=== PATIENT | female | born 1935 | race Caucasian/White ===

== ENCOUNTER 2022-05-17 04:41 | Inpatient (IN) | payer MEDICARE, BC, SELFPAY ==
[2022-05-17] VITALS (19 sets, daily range): BP systolic 111–155; BP diastolic 47–118; PULSE 50–98; RESP 12–22; TEMP 36.6–36.8; O2SAT 85–99; BMI 24.0; BMI 24.5
--- NOTE | 2022-05-17 04:47 | ECG_ITS ---
APPROVED REPORT Exam: Resting ECG HR:99 bpm ECG Measurements Heart Rate 99 AXES QRSd 83 QRS 107 QT 326 T 71 QTc 382 Conclusion ATRIAL FIBRILLATION SEPTAL MYOCARDIAL INFARCTION , OF INDETERMINATE AGE [40+ ms Q WAVE IN V1/V2] LATERAL MYOCARDIAL INFARCTION , OF INDETERMINATE AGE [40+ ms Q WAVE AND/OR ST/T ABNORMALITY IN I/aVL/V5/V6] ABNORMAL ECG UNCONFIRMED REPORT Electronically signed by : Yovani Vásquez MD 05/17/2022 13:21:27
--- NOTE | 2022-05-17 04:58 | XR_ITS ---
PROCEDURE INFORMATION: Exam: XR Chest Exam date and time: 05/17/2022 5:11 AM Age: 86 years old Clinical indication: Shortness of breath; Additional info: SOA TECHNIQUE: Imaging protocol: Radiologic exam of the chest. Views: 1 view. COMPARISON: No relevant prior studies available. FINDINGS: Lungs: No consolidation. Pleural spaces: No pleural effusion. No pneumothorax. Heart/Mediastinum: The heart is is severely enlarged. Bones/joints: There are degenerative changes of the spine and shoulders with evidence of chronic rotator cuff tears. IMPRESSION: 1. Cardiomegaly. 2. No evidence of active pulmonary disease. 3. A followup PA and lateral radiograph is recommended when the patient is clinically able.
[2022-05-17 05:10] LABS: Coronavirus 19, PCR Not Detected (NotDetected); Influenza A, PCR Not Detected (NotDetected); Influenza B, PCR Not Detected (NotDetected)
[2022-05-17 05:11] LABS: Basophils # 0.1 K/mm3 (0-0.2); Basophils % 0.7 % (0.1-2.0); Eosinophils # 0.2 K/mm3 (0.0-0.4); Eosinophils % 2.1 % (0.1-12.0); Hematocrit 42.6 % (37.0-47.0); Hemoglobin 13.3 g/dL (12.2-16.2); Lymphocytes # 1.9 K/mm3 (0.7-4.5); Lymphocytes % 22.2 % (10-50); Mean Corpuscular HGB Conc 31.3 g/dL (31.8-35.4); Mean Corpuscular Hemoglobin 31.1 pg (27.0-31.2); Mean Corpuscular Volume 99.5 fl (81-99); Mean Platelet Volume 7.6 fl (7.4-10.4); Monocytes # 0.6 K/mm3 (0.1-1.0); Monocytes % 6.7 % (1.7-9.3); Neutrophils % 68.3 % (37.0-80.0); Platelet Count 248 K/mm3 (142-424); Red Blood Count 4.28 M/mm3 (4.20-5.40); Red Cell Distribution Width 13.5 % (11.5-17.5); White Blood Count 8.8 K/mm3 (4.8-10.8)
[2022-05-17 05:16] LABS: Alanine Aminotransferase 29 U/L (12-78); Albumin Level 4.3 g/dl (3.5-5.0); Albumin/Globulin Ratio 1.4 (1.1-1.8); Alkaline Phosphatase 134 U/L (38-126); Anion Gap 12.9 mEq/L (5-15); Aspartate Amino Transferase 72 U/L (14-36); Bilirubin,Total 0.5 mg/dl (0.2-1.3); Blood Urea Nitrogen 18 mg/dl (7-17); Calcium 9.8 mg/dl (8.4-10.2); Carbon Dioxide 37 mmol/L (22.0-30.0); Chloride 96 mmol/L (98-107); Creatinine Clearance Estimated 42 mL/min (50-200); Estimated Glomerular Filt Rate 80 ml/min (>60); GFR (African American) 96 ML/MIN (>60); Globulin 3.1 g/dL (1.3-3.2); Glucose 111 mg/dl (74-100); Potassium 3.9 mmoL/L (3.5-5.1); Sodium 142 mmol/L (136-145); Total Protein,Serum 7.4 g/dl (6.3-8.2)
[2022-05-17 05:19] LABS: Lactic Acid 1.5 mmol/L (0.7-2.1)
--- NOTE | 2022-05-17 05:21 | HMH.EDSOB ---
Discharge Plan Disposition Chief Complaint: Shortness of Breath/Dyspnea Prescriptions Prescriptions: No Action furosemide 40 mg tablet 40 mg PO DAILYP PRN (Reason: fluid, swelling) Label Comments: TAKE 1 TABLET BY MOUTH ONCE DAILY NEEDED tramadol 50 mg tablet 50 mg PO DAILY pantoprazole 40 mg tablet,delayed release (DR/EC) 40 mg PO DAILY gabapentin 100 mg capsule 100 mg PO BID Label Comments: TAKE 1 CAPSULE BY MOUTH TWICE DAILY TO IMPROVE HAND SYMPTOMS. atenolol 50 mg tablet 50 mg PO DAILY Label Comments: TAKE 1 TABLET BY MOUTH ONCE DAILY oxycodone 5 mg tablet 5 mg PO DAILY Eliquis 5 mg tablet 5 mg PO BID Referrals Follow up/Referrals: Manuel Lundberg [Primary Care Provider] - See instructions Clinical Impressions Clinical Impression: Congestive heart failure, Atrial fibrillation Discharge ED Provider: Jonh Queen Resp/SOB HPI General Chief Complaint: Shortness of Breath/Dyspnea Stated Complaint: SOA Time Seen by Provider: 05/17/22 05:21 Mode of Arrival: Wheelchair Source of Information: Patient, Relative and Medical Record Limitations: No Limitations Description of Symptoms (Recalled from ER Triage Doc. by RN): pt c/o SOA and cough x 2 days that gotten progressive worse History of Present Illness progressive sob with cough over the last 2 days with o2 sat 85 on room air MD Complaint: shortness of breath and cough Onset (ago): day(s) Severity: moderate Known history of: congestive heart failure Associated symptoms: denies other symptoms Treatment prior to arrival: oxygen Related Data Home oxygen amount: other (uses bedtime ) Home Medications Medication Instructions Recorded Confirmed apixaban 5 mg tablet (Eliquis) 5 mg PO BID Blood thinner 05/17/22 05/17/22 atenolol 50 mg tablet 50 mg PO DAILY heart rate 05/17/22 05/17/22 furosemide 40 mg tablet 40 mg PO DAILYP PRN fluid, swelling 05/17/22 05/17/22 gabapentin 100 mg capsule 100 mg PO BID neuropathy 05/17/22 05/17/22 oxycodone 5 mg tablet 5 mg PO DAILY Pain 05/17/22 05/17/22 pantoprazole 40 mg tablet,delayed 40 mg PO DAILY GERD 05/17/22 05/17/22 release tramadol 50 mg tablet 50 mg PO DAILY Pain 05/17/22 05/17/22 Allergies Allergy/AdvReac Type Severity Reaction Status Date / Time No Known Allergies Allergy Verified 05/17/22 04:56 PFSH PFSH Social History Smoking Status: Never smoker alcohol intake: never current occupational status: retired Travel in the last 8 weeks: None ROS Obtained: Yes All systems reviewed & no additional complaints except as documented Constitutional Constitutional: Reports weakness Cardiovascular Cardiovascular: Reports as per HPI and Reports dyspnea Respiratory Respiratory: Reports dyspnea Neurologic Neurologic: Reports weakness Physical Exam General General appearance: alert Head Head exam: normocephalic Eye Eye exam: Present PERRL and EOMI ENT ENT exam: Present mucous membranes moist Neck Neck exam: Present trachea midline Respiratory Respiratory exam: Present wheezes Cardiovascular Cardiovascular exam: Present irregular rhythm, systolic murmur and +S4 Abdominal Exam Abdominal exam: Present soft Extremities Exam Extremities exam: Present edema Neurological Exam Neurological exam: Present alert and CN II-XII intact Skin Skin exam: Absent rash Medical Decision Making Medical Records Medical records reviewed: Yes I reviewed the patient's medical records. Luis Miguel Inquiry Pt receiving controlled substance: No Vital Signs: 05/17/22 04:42 05/17/22 05:05 Temperature 98.3 F Temperature Source Oral Pulse Rate 93 H Pulse Rate [Right] 80 Respiratory Rate 22 Blood Pressure 137/79 Blood Pressure [Right Arm] 155/76 H Blood Pressure Mean 106 Blood Pressure Mean [Right Arm] 102 02 Sat by Pulse Oximetry 85 L 95 Oxygen Delivery Method Room Air Oxygen Flow Rate (LPM) 2 Lab Data Lab results reviewed:
[2022-05-17 05:25] LABS: NT Pro Brain Natriuretic Pep. 2780 pg/mL (0-450)
[2022-05-17 05:34] LABS: Troponin I < 0.01 ng/ml (0.00-0.034)
[2022-05-17 05:36] LABS: Free T4 (Free Thyroxine) 1.48 ng/dl (0.78-2.19)
--- NOTE | 2022-05-17 05:38 | PC.NURSE ---
ER speaking with Hospitalist at this time
[2022-05-17 05:46] LABS: Thyroid Stimulating Hormone 4.34 uIU/mL (0.465-4.68)
--- NOTE | 2022-05-17 06:00 | EXP.HP ---
History of Present Illness *Admission Date: 05/17/22 *Reason for visit:: Shortness of air, cough *History of present illness: Ms. Mendoza is a 86-year-old female with a past medical history that is positive for Atrial Fibrillation on chronic anticoagulation, CHF, unknown type and EF, and chronic home oxygen use at nights. She presents to [facility] through the ER due to shortness of air that has progressively worsened associated with a non-productive cough x 2-3 days duration. The patient was seen on admission in the ER, and son were at bedside. The patient reports shortness of air associated with cough, orthopnea and paroxysmal nocturnal dyspnea over the last 2-3 days. She reports that her symptoms worsened and did not improve at home so she came into the ER for evaluation. In the ER, the patient had a Cxray that showed findings of pulmonary crowding, BNP was elevated at 2780. Troponin was <0.01. CBC, CMP were unremarkable. Oxygen saturation was 95% on 2L nasal cannula. On exam the patient has some fine crackles in the lung lobes and 1 plus BLE edema. The patient will be admitted with initial impression: CHF exacerbation. Echo will be ordered, Lasix will be given. Strict intake/output and weight will be monitored. Sputum will be ordered, D-dimer will be ordered. The plan of care was discussed in detail with the patient and her family prior to admission. Patient and family verbalized understanding and agreement with the plan of care. [facility] Medical History (Updated 05/17/22 @ 10:43 by Tavia Caraballo APRN) Abnormal electrocardiogram [ECG] [EKG] Afib Atypical angina Bilateral carotid bruits CHF (congestive heart failure) Current use of jail anticoagulation Elevated troponin Lower extremity edema Pulmonary hypertension Shortness of Breath Surgical History H/O: hysterectomy History of cholecystectomy Hx of hernia repair Social History (Updated 05/17/22 @ 06:45 by April Barnes RN) Smoking Status: Never smoker alcohol intake: never current occupational status: retired Travel in the last 8 weeks: None Review of Systems Review of Systems Review of systems:: pertinent systems reviewed and negative unless documented below Constitutional Constitutional: Reports weakness Eyes Eyes: Reports system reviewed and no additional complaints, except as documented ENT Ears, Nose, Mouth, and Throat: Reports system reviewed and no additional complaints, except as documented *Cardiovascular Cardiovascular: Reports dyspnea, Reports dyspnea on exertion, Reports edema, Reports irregular heart rhythm, Reports leg edema, Reports orthopnea and Reports paroxysmal nocturnal dyspnea *Respiratory Respiratory: Reports dyspnea and Reports dyspnea on exertion *Gastrointestinal Gastrointestinal: Reports system reviewed and no additional complaints, except as documented *Genitourinary Genitourinary: Reports system reviewed and no additional complaints, except as documented *Musculoskeletal Musculoskeletal: Reports system reviewed and no additional complaints, except as documented Integumentary/Breasts Skin/Breast: Reports system reviewed and no additional complaints, except as documented *Neurologic Neurologic: Reports system reviewed and no additional complaints, except as documented and Reports weakness Psychiatric Psychiatric: Reports system reviewed and no additional complaints, except as documented Endocrine Endocrine: Reports system reviewed and no additional complaints, except as documented Hematologic/Lymphatic Hematologic/Lymphatic: Reports system reviewed and no additional complaints, except as documented Allergic/Immunologic Allergic/Immunologic: Reports system reviewed and no additional complaints, except as documented Meds Home Medications and Allergies Home Medications Medication Instructions Recorded Confirmed Type apixaban 5 m
--- NOTE | 2022-05-17 06:02 | CA_ITS ---
APPROVED REPORT EXAM: Comprehensive 2D, Doppler, and color-flow Echocardiogram Software Verification Engineer: Radha Villar RCS, RVS Ht: 5 ft 4 in Wt: 140lbs BSA: 1.68 BP: 137/79 mmHg Indications: SOA,CHRONIC AF,CHF, 2D Dimensions LVOT 1.58 cm (M/F) 1.5-2.5 M-Mode Dimensions RVDd 2.40 cm (0.9-2.6) LA Diam 4.66 cm (1.9-4.0) LVDd 5.15 cm (3.5-5.7) Ao Diam 3.12 cm (2.0-3.7) LVDs 3.75 cm (3.5-5.7) IVSd 0.82 cm (0.6-1.1) PWd 0.89 cm (0.6-1.1) EF (Teich) 52.60% FS 27.20% EDV (Teich) 126.60 mL ESV (Teich) 60.00 mL LV Diastology E Decel Time 120.00 (160-240 msec) E/A Ratio 2.0 MED E' 10.50 (< 7 cm/sec) E'/MED E' Ratio 9.16 (>14) LAT E' 14.60 (<10 cm/sec) E/LAT E' Ratio 6.59 (>14) Aortic Valve AI PHT 415.00 ms Mitral Valve MV E Max Frank. 96.00 (40-130 cm/s) MV A Velocity 49.00 (40-130 cm/s) E/A Ratio 1.97 MV Decel. Time 120.00 (160-240 ms) MV PHT 35.00 ms Tricuspid Valve TR P. Velocity 364.00 cm/s RAP Estimate 10.00 mmHg RVSP 63.00 mmHg Left Ventricle Left atrium is markedly enlarged, left ventricle is normal size, mild concentric left ventricular hypertrophy, estimated ejection fraction 55% with no regional wall motion abnormality, diastolic parameters are inconclusive. Right Ventricle Right atrium and right ventricle are moderately enlarged with normal contractility. Aortic Valve Aortic valve is thickened and calcified without aortic stenosis, there is mild aortic insufficiency. Mitral Valve Mitral valve leaflets are minimally thickened, there is moderate mitral regurgitation. Tricuspid Valve Tricuspid valve is minimally thickened, there is moderate tricuspid regurgitation, calculated right ventricular systolic pressure 63 mmHg. Pulmonic Valve Pulmonic valve is poorly visualized. Great Vessels Aortic root is normal size. Inferior vena cava is poorly visualized. Pericardium No significant pericardial effusion noted. Conclusion 1. Biatrial enlargement, normal left ventricular size, mild concentric left ventricular hypertrophy, estimated ejection fraction 55% with no regional wall motion abnormality, diastolic parameters are inconclusive. 2. Moderately enlarged right ventricle with normal contractility. 3. Mild aortic, moderate mitral and moderate tricuspid regurgitation, calculated right ventricular systolic pressure 63 mmHg. 4. No significant pericardial effusion. 5. Inferior vena cava is poorly visualized. Electronically signed by : Luis Hennessy MD 05/17/2022 07:33:30
[2022-05-17 06:16] LABS: Appearance,Urine CLEAR (Clear); Bilirubin,Urine Negative (Negative); Blood, Urine TRACE-I (Negative); Color,Urine YELLOW (Yellow); Glucose,Urine (UA) Negative (Negative); Ketones,Urine Negative (Negative); Leukocyte Esterase,Urine Negative (Negative); Microscopic, Urine URINE MICROSCOPIC (MICROSCOPIC); Nitrate,Urine POSITIVE (Negative); PH,Urine 7.5 (5.0-8.5); Protein,Urine Negative (Negative)
--- NOTE | 2022-05-17 06:27 | PC.NURSE ---
PT ARRIVED TO FLOOR VIA WHEELCHAIR AT THIS TIME
[2022-05-17 06:45] LABS: Bacteria,Urine 3+ /lpf; RBC,Urine Occasional #/hpf (0-3); Squamous Epithelial Cell,Urine Occasional #/hpf (0-5); WBC,Urine Occasional #/hpf (0-3)
[2022-05-17 08:47] LABS: Troponin I 0.04 ng/ml (0.00-0.034)
--- NOTE | 2022-05-17 09:36 | HMH.PTEV ---
Physical Therapy Evaluation Rehab PT IP Evaluation Start: 05/17/22 08:45 Freq: ONCE Status: Active Protocol: Document 05/17/22 09:09 NINABEKAH (Rec: 05/17/22 09:36 NINABEKAH [id number]) Subjective/History History History Ms. Mendoza is a 86-year-old female with a past medical history that is positive for Atrial Fibrillation on chronic anticoagulation, CHF, unknown type and EF, and chronic home oxygen use at nights. She presents to [facility] through the ER due to shortness of air that has progressively worsened associated with a non- productive cough x 2-3 days duration. Subjective Subjective no complaints from PT Rehab PT IP Eval Objective Appearance Patient Behavior Appropriate,Cooperative Patient Orientation Place,Name,Birthday,Year, Situation Difficulty following instructions none Speech Pattern Clear,Appropriate Ambulation Patient Able to Ambulate Yes Ambulation Observation IP General Gait Pattern Observation Shuffling Step Ambulation Distance (feet) 35 Ambulation Assistive Device Rolling Walker Ambulation Ability Supervision/Stand by Balance Ability to Arise Able, uses arms to help Sitting Balance Steady, safe Standing Balance Narrow stance w/o support Dynamic Sitting Balance Ability Good Dynamic Standing Balance Ability Fair Transfers Chair Transfer Ability Supervision/Stand by Sit to Stand Chair Transfer Ability Supervision/Stand by,Contact Guard/Hand Hold Rehab PT IP prob,goals,plan Problems Date of Evaluation: 05/17/22 PT IP Problems Gait,Self care,Safety Rehab Potential Rehab Potential Good Equipment Needs Assistive Devices Rolling / Wheeled Walker Plan PT Intervention Plan Transfers,Gait,Balance,Self care,Safety,Therapeutic Exercise PT Plan Frequency BID Duration LOS Discharge Goals Bed Transfer Ability Supervision/Stand by Sit to Stand Chair Transfer Ability Supervision/Stand by Ambulation Assistive Device Rolling Walker Ambulation Distance (feet) 35 Discharge Plan PT Discharge Plan Pt will benefit from skilled therapy while in H
--- NOTE | 2022-05-17 10:10 | IR_ITS ---
APPROVED REPORT Patient Location: Inpatient Senior Java Data Architect: ORION Cornejo RT (R) PROCEDURES Catheter placement in the right subclavian artery Right subclavian artery retrograde angiogram Bare-metal stent deployment to the right subclavian artery Right heart catheterization Left heart catheterization Left ventriculogram Selective coronary angiogram Drug-eluting stent deployment to the ostial proximal LAD and mid LAD in a noncontiguous manner INDICATION Elevated troponin/acute coronary syndrome, Unstable angina, Coronary artery disease, Right subclavian stenosis, Pulmonary hypertension Informed consent was obtained prior to the procedure. COMPLICATIONS NONE Estimated Blood Loss: LESS THAN 10 ML TECHNIQUE One percent lidocaine was used to anesthetize the right anterior aspect of the right wrist. The right radial artery was accessed via the Seldinger technique and a 6 Spanish hydrophilic sheath was placed in the right radial artery. Following this one percent lidocaine was used to anesthetize the right anterior aspect of the right neck. The right internal jugular vein was accessed via the Seldinger technique and a 7 Spanish sheath was placed in the right internal jugular vein. Following this an arterial cocktail was administered using 5000U heparin, 2.5 mg verapamil, 1mg Lidocaine and 800mcg nitroglycerin into the right radial sheath. A papa catheter was advanced into the proximal subclavian artery however retrograde angiography demonstrated extensive calcification. A Choice PT extra-support wire was used to traverse the stenosis and therapeutic heparin was administered giving a therapeutic ACT. A 5 mm x 12 mm noncompliant coronary balloon was deployed at 20 sergio to reduce the stenosis. A 7 mm x 15 mm Herculink stent was deployed at 16 sergio reducing the stenosis. An additional 7 mm x 15 mm Herculink stent was advanced proximal to the first stent yet still overlapping it and deployed at 20 sergio. The balloon was brought back between the 2 stents and deployed at 20 to post dilate. Following this excellent angiograph results were obtained with normalization of blood pressure from the aorta into the right arm. This allowed advancement of the Poppa catheter were left heart catheterization and left ventriculogram and selective coronary angiography was performed. Following this the guide catheter was placed into the left main artery followed by a Choice PT extra-support wire. A 2.75 x 22 mm resolute Birchleaf stent was placed in the ostial proximal LAD and deployed at 20 sergio reducing the stenosis to 0%. A 2.5 x 12 mm resolute Birchleaf stent was then placed in the mid LAD and deployed at 12 sergio. An additional 2.25 x 12 mm resolute Birchleaf stent was placed distal to this yet still overlapping it and deployed at 20 sergio with the balloon being pulled back and deployed at 24 sergio to post dilate the 2 5 stent and mesh the 2 stents together. MUMTAZ II flow was present at the beginning of the procedure in the LAD with MUMTAZ-3 flow at the end of the procedure. Following the coronary angiogram right heart catheterization was performed under fluoroscopic and hemodynamic guidance. At the end the procedure the apparatus was removed the sheath was removed and hemostasis was achieved using TR banding patient was transferred to the postop already in stable condition ANGIOGRAPHIC RESULTS The left main artery Normal The left anterior descending artery Has an ostial 70% followed by proximal 70% stenosis with a mid vessel greater than 90% stenosis accompanied by MUMTAZ II flow The circumflex artery Large dominant with mild 10% atheromatous plaque The right coronary artery Nondominant normal The PITTMAN ventriculogram reveals Normal 65% The lef
--- NOTE | 2022-05-17 10:26 | EXP.CARD.CON ---
History of Present Illness History of Present Illness Consult date: 05/17/22 Requesting physician: Rosalino Olmedo Consult reason: shortness of breath Chief complaint: SOA History of present illness: This is an 86-year-old white female who presented to the emergency department complaints of shortness of breath and a cough. The patient reports that she has been short of breath for the last several weeks and it progressively worsened. She states the last 2 to 3 days her shortness of breath got pretty severe. She states that it was associated with a productive cough. She states that at first the flame was clear and then turned green. The shortness of breath was associated with a cough, orthopnea and PND. Her symptoms continue to worsen with no improvement at home so she came into the emergency department. She denies any chest pain or pressure. Her shortness of breath was also associated with lower extremity edema. She reports wearing compression hose at first but the edema got a little better so she stopped wearing them. The patient was admitted to the hospital for an acute exacerbation of CHF due to an elevated BNP at 2780 and her symptoms. She denies any fever, chills, nausea, vomiting or diarrhea. The patient does report that both her mother and father had coronary artery disease/[place]. 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 Elevated troponin Lower extremity edema Pulmonary hypertension Shortness of Breath Surgical History H/O: hysterectomy History of cholecystectomy Hx of hernia repair Social History (Updated 05/17/22 @ 06:45 by April Barnes RN) Smoking Status: Never smoker alcohol intake: never current occupational status: retired Travel in the last 8 weeks: None Review of Systems Review of Systems Review of systems:: pertinent systems reviewed and negative unless documented below Constitutional Constitutional: Reports system reviewed and no additional complaints, except as documented and Reports weakness Eyes Eyes: Reports system reviewed and no additional complaints, except as documented ENT Ears, Nose, Mouth, and Throat: Reports system reviewed and no additional complaints, except as documented *Cardiovascular Cardiovascular: Reports system reviewed and no additional complaints, except as documented, Denies chest pain, Reports dyspnea, Reports dyspnea on exertion, Reports leg edema and Reports orthopnea *Respiratory Respiratory: Reports system reviewed and no additional complaints, except as documented, Reports change in phlegm color, Reports chest congestion, Reports cough, Reports dyspnea, Reports dyspnea on exertion and Reports excessive phlegm production *Gastrointestinal Gastrointestinal: Reports system reviewed and no additional complaints, except as documented *Genitourinary Genitourinary: Reports system reviewed and no additional complaints, except as documented *Musculoskeletal Musculoskeletal: Reports system reviewed and no additional complaints, except as documented Integumentary/Breasts Skin/Breast: Reports system reviewed and no additional complaints, except as documented *Neurologic Neurologic: Reports system reviewed and no additional complaints, except as documented and Reports weakness Psychiatric Psychiatric: Reports system reviewed and no additional complaints, except as documented Endocrine Endocrine: Reports system reviewed and no additional complaints, except as documented Hematologic/Lymphatic Hematologic/Lymphatic: Reports system reviewed and no additional complaints, except as documented Allergic/Immunologic Allergic/Immunologic: Reports system reviewed and no additional complaints, except as documented Exam Data for Last 24 hours Vital si
--- NOTE | 2022-05-17 10:28 | CA_ITS ---
FINAL REPORT TECHNIQUE: Color Doppler, duplex Doppler and ballard scale sonography of the bilateral neck arterial vasculature was performed. Velocities were measured in the carotid arteries. Stenosis evaluation based on the validated velocity criteria. CLINICAL HISTORY: bilateral carotid bruits, Pre cardiac cath, chronic afib FINDINGS: The peak systolic velocity of the right common carotid artery is 95 cm/s. The peak systolic velocity of the right internal carotid artery is 113 cm/s and end diastolic velocity 14 cm/s. The ICA/CCA ratio is 1.2. A small amount of plaque is present. The right external carotid artery is patent. The right vertebral artery is patent with antegrade flow. The peak systolic velocity of the left common carotid artery is 79 cm/s. The peak systolic velocity of the left internal carotid artery is 195 cm/s and end diastolic velocity 31 cm/s. The ICA/CCA ratio is 2.5. A moderate amount of plaque is present. The left external carotid artery is patent.The left vertebral artery is patent with antegrade flow. IMPRESSION: Less than 50% stenosis on the right. 50-69% stenosis on the left. Recommend correlation with CTA or catheter angiogram. Reviewed, Interpreted and Dictated by Jonathan Elam III, MD Transcribed by Dayna Bunch Authenticated and [facility]
--- NOTE | 2022-05-17 10:39 | HMH.OTEV ---
OT Inpatient Evaluation Rehab OT IP Evaluation Start: 05/17/22 08:45 Freq: ONCE Status: Complete Protocol: Document 05/17/22 10:30 [facility] (Rec: 05/17/22 10:39 [facility] [id number]) Rehab OT IP Assessment Subjective History Pt was oriented x 3 on arrival . Pt agreeable to engage in therapy evaluation. Pt was admitted via Ed on 05/17/22 due to SOA and cough. Prior to being in the hospital, pt lived at home with her . Pt claims she was independent with all ADLs. Pt reports she does complete most IADLs independently such as laundry and cleaning. However, her does the grocery shopping and most of the cooking. She does use a rollator at all times during functional transfers. She also normally uses o2 at night . Pt has a past medical history of: Afib CHF (congestive heart failure) Subjective I am so cold. Pt resting in chair. Pt completed lower body dressing by donning socks independently . Pt stood from chair with min assist. Pt transferred from chair to bsc with cga and rolling walker. Pt sat down on bsc with cga. Pt stood from bsc with min assist after urination. Pt was dependent to complete toileting hygiene after urination and to don a clean brief. Pt transferred back to chair with cga and rollator. Pt sat down in chair with cga. Objective Patient Orientation Person,Place,Birthday Upper Extremity Gross ROM Min Limitation <25% Shoulder ROM Limitations Muscle Weakness Elbow ROM Limitations Muscle Weakness Wrist Limitations of Range of Motion Muscle Weakness Transfer Training Sit/Stand Transfer Assist Level Contact Guard/Hand Hold Chair Transfer Ability
[2022-05-17 10:55] LABS: Bilirubin,Unconjugated 0.3 mg/dL (0.0-1.1)
[2022-05-17 10:56] LABS: Alanine Aminotransferase 30 U/L (12-78); Alkaline Phosphatase 107 U/L (38-126); Aspartate Amino Transferase 75 U/L (14-36); Bilirubin,Direct 0.2 mg/dl (0.0-0.4); Bilirubin,Indirect 0.3 mg/dL (0.0-0.9); Bilirubin,Total 0.5 mg/dl (0.2-1.3); Chol/HDL Ratio 2.7 (1-3.5); Cholesterol 160 mg/dl (140-200); HDL Cholesterol 60 mg/dl (40-60); Triglycerides 45 mg/dl (30-150); VLDL Cholesterol 9 mg/dL (0-40)
[2022-05-17 11:07] LABS: Direct LDL Cholesterol 73.29 mg/dL (100-129)
[2022-05-17 11:36] LABS: Troponin I 0.06 ng/ml (0.00-0.034)
--- NOTE | 2022-05-17 13:05 | PC.NURSE ---
Report received from Kayla Bernard RN
[2022-05-17 13:16] LABS: CATHL Activated Clotting Time > 400 SEC (74-125)
[2022-05-17 13:17] LABS: CATHL Arterial O2 SAT 77.7 % (90-100); CATHL Venous O2 SAT 79.2 % (75-80)
--- NOTE | 2022-05-17 13:19 | CT_ITS ---
FINAL REPORT CLINICAL HISTORY: restrictive pericarditis, PER DR TAPIA MEASURE PERICARDIAL THICKNESS FINDINGS: Axial images were obtained from the lung apex to the mid abdomen by computed tomography. Coronal reformatted images were obtained. This study was performed with techniques to keep radiation doses as low as reasonably achievable, (ALARA). Individualized dose reduction techniques using automated exposure control or adjustment of mA and/or kV according to the patient's size were employed. There is no axillary adenopathy. There is no hilar or mediastinal adenopathy. Cardiomegaly is noted. Pericardial thickness measures approximately 2 mm. There are several small pericardial calcifications. There is a small right pleural effusion. There is left posterior pleural thickening with pleural calcification. There is right pleural calcification. Limited images of the upper abdomen pneumobilia likely due to postoperative change. There is mild anasarca. There is probable rounded atelectasis in the left lower lobe. There is fusion of multiple thoracic vertebrae consistent with ankylosing spondylitis. There is a partially imaged presumed IVC filter. IMPRESSION: Pericardial thickness of 2 mm with several small pericardial calcifications. Probable rounded atelectasis in the left lower lobe. Reviewed, Interpreted and Dictated by Jonathan Elam III, MD Transcribed by Anam Cevallos Authenticated and [facility]
--- NOTE | 2022-05-17 16:51 | EXP.DC.SUM ---
General Admission date:: 05/17/22 Discharge date: 05/17/22 HPI HPI HPI: Ms. Mendoza is a 86-year-old female with a past medical history that is positive for Atrial Fibrillation on chronic anticoagulation, CHF, unknown type and EF, and chronic home oxygen use at nights. She presents to [facility] through the ER due to shortness of air that has progressively worsened associated with a non-productive cough x 2-3 days duration. The patient was seen on admission in the ER, and son were at bedside. The patient reports shortness of air associated with cough, orthopnea and paroxysmal nocturnal dyspnea over the last 2-3 days. She reports that her symptoms worsened and did not improve at home so she came into the ER for evaluation. In the ER, the patient had a Cxray that showed findings of pulmonary crowding, BNP was elevated at 2780. Troponin was <0.01. CBC, CMP were unremarkable. Oxygen saturation was 95% on 2L nasal cannula. On exam the patient has some fine crackles in the lung lobes and 1 plus BLE edema. The patient will be admitted with initial impression: CHF exacerbation. Echo will be ordered, Lasix will be given. Strict intake/output and weight will be monitored. Sputum will be ordered, D-dimer will be ordered. The plan of care was discussed in detail with the patient and her family prior to admission. Patient and family verbalized understanding and agreement with the plan of care. Hospital Course Hospital Course Hospital Course: 86-year-old female with past medical history of CHF, type unknown, EF unknown, and Atrial Fibrillation presents with acute onset of shortness of air associated with orthopnea, paroxysmal nocturnal dyspnea and non-productive cough. - CHF exacerbation Reports sees Cardiology in [place], [place] On home Lasix, unknown last echo Obtain Echo Started on Lasix iv Daily Weights Low Sodium Diet Strict Intake/output measurements CHF teachings - Atrial Fibrillation Continue home DOAC and Beta Donna - DVT ppx Continue home DOAC ANGIOGRAPHIC RESULTS The left main artery Normal The left anterior descending artery Has an ostial 70% followed by proximal 70% stenosis with a mid vessel greater than 90% stenosis accompanied by MUMTAZ II flow The circumflex artery Large dominant with mild 10% atheromatous plaque The right coronary artery Nondominant normal The PITTMAN ventriculogram reveals Normal 65% The left ventricular end-diastolic pressure 10 mmHg Right subclavian artery has a proximal calcified complex 90% stenosis.? Following the stent the right subclavian artery is widely patent Right atrial pressure 15 mmHg Right ventricular pressure 45/15 mmHg Pulmonary artery pressure 40/15 mmHg Pulmonary occlusion pressure 15 mmHg Right atrial saturation 79% Pulmonary artery saturation 77% IMPRESSION Severe proximal and mid LAD stenosis as described above with successful stenting reducing the severe and critical disease to 0% with 2 noncontiguous drug-eluting stents Severe right subclavian artery stenosis with successful stenting reducing the stenosis to 0% with 2 contiguous bare-metal stents Normal ejection fraction Normal left ventricular end-diastolic pressure Moderate pulmonary hypertension Equalization of pressures PLAN 1. Plavix 600 mg now followed by 75 mg daily 2. Continue aspirin 81 mg daily plus Eliquis for atrial fibrillation 3. In 30 days discontinue the aspirin and continue Eliquis and Plavix 4. LDL less than 55 to be achieved with high intensity statin 5. Avoidance of tobacco products 6. CAT scan of the chest with specific attention looking at the pericardium to evaluate for pericardial thickness/constrictive pericarditis. 7. Cardiac rehabilitation 8. Avoidance of tobacco products Exam Data for Last 24 hours Vital signs and Labs for Last 24 Hours: Temp Pulse Resp BP Pulse Ox 98.0 F 62 18 134/59 L 95 05/17/22 08:00 05/17/22 15:40 05/17/22 15:40
--- NOTE | 2022-05-17 18:49 | PC.NURSE ---
Spoke with Dr Olmedo about pt being dc'd with an mat or arb; He said to be addressed by cardiology on f/u
--- NOTE | 2022-05-18 15:01 | CARE MANAGER ---
Spoke with patient for post-discharge phone intervview, he states that patient is doing well and has no needs at this time.
--- NOTE | 2022-05-19 10:25 | HMH.PHACL ---
PHA Anesthesiologist And Critical Care Discharge Med Silo Tender: Mihir Mendoza has received discharge medication counseling on the following medications:DISCHARGED AFTER HOURS. PATIENT ON ASPIRIN 81 MG DAILY, ATENOLOL 50 MG DAILY, ATORVASTATIN 20 MG HS, AND CLOPIDOGREL 75 MG DAILY. MD HOLDING GLENROY/ARB AT TIME OF D/C DUE TO BP.
== END 2022-05-17 19:14 | disposition home or self-care (01) | DRG 246 ==
LOC: ER 04:57 → 2ND 05:49
PROVIDERS: Internal Medicine; Nurse Practitioner Family; Admitting Provider Internal Medicine Adolescent Medicine; Emergency Provider Emergency Medicine; PCP Family Medicine; Visit Provider Internal Medicine Adolescent Medicine
PROC: 027035Z Dilation of Coronary Artery, One Artery with Two Drug-eluting Intraluminal Devices, Percutaneous Approach (ICD-10-PCS; principal; 2022-05-17 11:30)
DX: I25.110 Atherosclerotic heart disease of native coronary artery with unstable angina pectoris (principal); I50.33 Acute on chronic diastolic (congestive) heart failure; I27.20 Pulmonary hypertension, unspecified; I70.8 Atherosclerosis of other arteries; Z99.81 Dependence on supplemental oxygen
CPT/HCPCS: 36415; 37236; 71045; 71250; 80053; 80061; 80076; 81001; 82810; 83605; 83880; 84439; 84443; 84484; 85025; 85347; 87040; 87070; 87086; 87088; 87186; 87205; 92928; 93005; 93306; 93460; 93880; 97161; 97166; 99152; 99153; 99285; C1725; C1769; C1876; C1894; C9600; C9803; J0696; J1644; Q9967; U0003; U0005

== ENCOUNTER → 2022-05-25 10:08 | Outpatient (CLI) | payer MEDICARE, BC, SELFPAY ==
[2022-05-25 10:32] LABS: Hematocrit 38.2 % (37.0-47.0); Hemoglobin 11.9 g/dL (12.2-16.2)
[2022-05-25 10:53] LABS: Blood Urea Nitrogen 26 mg/dl (7-17); Estimated Glomerular Filt Rate 68 ml/min (>60); GFR (African American) 83 ML/MIN (>60)
== END ==
PROVIDERS: Internal Medicine; PCP Internal Medicine Adolescent Medicine; Visit Provider Internal Medicine Adolescent Medicine
DX: Z51.81 Encounter for therapeutic drug level monitoring (principal); Z79.01 Long term (current) use of anticoagulants; I20.8 Other forms of angina pectoris
CPT/HCPCS: 36415; 82565; 84520; 85014; 85018

== ENCOUNTER 2022-07-02 10:43 | Emergency (ER) | payer MEDICARE, BC, SELFPAY ==
[2022-07-02 10:44] VITALS: BP 171/63; PULSE 77; RESP 18; TEMP 36.6; O2SAT 97; BMI 23.3
[2022-07-02 11:13] LABS: Occult Blood,Stool Negative (Negative)
[2022-07-02 11:14] LABS: Basophils % 0.5 % (0.1-2.0); Chloride 101 mmol/L (98-107); Eosinophils # 0.1 K/mm3 (0.0-0.4); Eosinophils % 1.6 % (0.1-12.0); Hematocrit 36.7 % (37.0-47.0); Hemoglobin 11.8 g/dL (12.2-16.2); Lymphocytes # 1.2 K/mm3 (0.7-4.5); Mean Corpuscular Hemoglobin 31.5 pg (27.0-31.2); Mean Corpuscular Volume 98.5 fl (81-99); Mean Platelet Volume 7.9 fl (7.4-10.4); Monocytes # 0.3 K/mm3 (0.1-1.0); Monocytes % 5.5 % (1.7-9.3); Neutrophils # 4.1 K/mm3 (1.8-7.8); Neutrophils % 71.4 % (37.0-80.0); Platelet Count 247 K/mm3 (142-424); Red Blood Count 3.73 M/mm3 (4.20-5.40); Red Cell Distribution Width 14.1 % (11.5-17.5); Sodium 140 mmol/L (136-145); White Blood Count 5.7 K/mm3 (4.8-10.8)
[2022-07-02 11:15] LABS: Potassium 3.7 mmoL/L (3.5-5.1)
[2022-07-02 11:17] LABS: Alanine Aminotransferase 25 U/L (12-78); Alkaline Phosphatase 121 U/L (38-126); Aspartate Amino Transferase 55 U/L (14-36); Bilirubin,Total 0.8 mg/dl (0.2-1.3); Blood Urea Nitrogen 13 mg/dl (7-17); Creatinine Clearance Estimated 42 mL/min (50-200); Estimated Glomerular Filt Rate 80 ml/min (>60); GFR (African American) 96 ML/MIN (>60)
--- NOTE | 2022-07-02 11:17 | PC.NURSE ---
DR. DENNIS AT BEDSIDE
[2022-07-02 11:18] LABS: Albumin Level 3.5 g/dl (3.5-5.0); Albumin/Globulin Ratio 1.2 (1.1-1.8); Anion Gap 7.7 mEq/L (5-15); Calcium 9.1 mg/dl (8.4-10.2); Carbon Dioxide 35 mmol/L (22.0-30.0); Glucose 105 mg/dl (74-100); Total Protein,Serum 6.5 g/dl (6.3-8.2)
[2022-07-02 11:31] VITALS: BP 151/84; PULSE 81; O2SAT 99
--- NOTE | 2022-07-02 11:40 | PC.NURSE ---
DR. JEFFERY PAGED AT THIS TIME
--- NOTE | 2022-07-02 11:41 | HMH.EDGENADL ---
Discharge Plan Disposition Patient Disposition: Home, Self-Care Condition: Good Prescriptions Prescriptions: No Action tramadol 50 mg tablet 50 mg PO DAILY pantoprazole 40 mg tablet,delayed release (DR/EC) 40 mg PO BID gabapentin 100 mg capsule 100 mg PO BID Label Comments: TAKE 1 CAPSULE BY MOUTH TWICE DAILY TO IMPROVE HAND SYMPTOMS. atenolol 50 mg tablet 50 mg PO DAILY Label Comments: TAKE 1 TABLET BY MOUTH ONCE DAILY oxycodone 5 mg tablet 5 mg PO DAILY Eliquis 5 mg tablet 5 mg PO BID aspirin 81 mg Tablet,Delayed Release (Dr/Ec) 81 mg PO DAILY 30 Days Qty: 30 0RF clopidogrel 75 mg Tablet 75 mg PO DAILY 30 Days Qty: 30 0RF nitrofurantoin monohyd/m-cryst [Macrobid] 100 mg capsule 100 mg PO BID 5 Days Qty: 10 0RF Rx Instructions: must administer with a meal/food furosemide 40 mg tablet 40 mg PO DAILY 30 Days Qty: 30 0RF Label Comments: TAKE 1 TABLET BY MOUTH ONCE DAILY NEEDED atorvastatin 20 mg tablet 20 mg PO DAILY 30 Days Qty: 30 0RF Referrals Follow up/Referrals: Manuel Lundberg [Primary Care Provider] - See instructions Aquilino Torres MD [Staff Physician] - See instructions Activity Restrictions/Add. Instructions Additional Instructions/Restrictions: BJ from Dr. Torres's office will call you tomorrow to schedule colonoscopy. Dr. Torres will discuss your blood thinner medication with Dr. Yañez and they will then instruct you on which medications she will stop before colonoscopy and when to stop them. Return to the emergency department if profuse bleeding. Clinical Impressions Clinical Impression: Bright red rectal bleeding Discharge ED Provider: Zachary Fernández General Adult HPI General Chief complaint: GI Bleed Stated complaint: blood in stool Time Seen by Provider: 07/02/22 11:13 Mode of Arrival: Wheelchair Limitations: No Limitations Description of Symptoms (Recalled from ER Triage Doc. by RN): PT REPORTS BLOOD IN STOOL THIS AM, LARGE AMOUNT OF BRIGHT RED BLOOD. HAS OCCURED IN SMALL AMOUNTS OVER 2-3 WEEKS. PT DENIES ANY PAIN. ON ELIQUIS AND PLAVIX History of Present Illness HPI narrative: Complains of intermittent rectal bleeding for at least a couple of weeks. No abdominal pain or rectal pain. No vomiting or hematemesis. No fever. She has a prior history of rectal bleeding about 10 years ago from diverticulosis. She does not know when she might have last had a colonoscopy. states they would prefer to have colonoscopy here if it is needed. On May 17 she had cardiac and subclavian stent placed by Dr. Yañez here. She was started on Plavix at that time. She was already on Eliquis and low-dose aspirin prior to that for atrial fibrillation. Related Data Home Medications Medication Instructions Recorded Confirmed apixaban 5 mg tablet (Eliquis) 5 mg PO BID Atrial fib 05/17/22 05/25/22 atenolol 50 mg tablet 50 mg PO DAILY heart rate 05/17/22 05/25/22 gabapentin 100 mg capsule 100 mg PO BID neuropathy 05/17/22 05/25/22 oxycodone 5 mg tablet 5 mg PO DAILY Pain 05/17/22 05/25/22 pantoprazole 40 mg tablet,delayed 40 mg PO BID acid reflux 05/17/22 05/25/22 release tramadol 50 mg tablet 50 mg PO DAILY Pain 05/17/22 05/25/22 Previous Rx's Medication Instructions Recorded aspirin 81 mg tablet,delayed 81 mg PO DAILY 30 days #30 tabs 05/17/22 release atorvastatin 20 mg tablet 20 mg PO DAILY 30 days #30 tabs 05/17/22 clopidogrel 75 mg tablet 75 mg PO DAILY 30 days #30 tabs 05/17/22 furosemide 40 mg tablet 40 mg PO DAILY 30 days #30 tabs 05/17/22 nitrofurantoin 100 mg PO BID 5 days #10 caps 05/17/22 monohydrate/macrocrystals 100 mg capsule (Macrobid) Allergies Allergy/AdvReac Type Severity Reaction Status Date / Time No Known Allergies Allergy Verified 05/25/22 10:48 [facility] Disclaimer: The information contained in this section may have been updated after the patient was s
--- NOTE | 2022-07-02 11:41 | PC.NURSE ---
DR. DENNIS SPEAKING WITH DR. TAPIA
--- NOTE | 2022-07-02 11:44 | PC.NURSE ---
DR. POP PAGED AT THIS TIME
[2022-07-02 11:45] VITALS: BP 151/84; PULSE 73; O2SAT 97
--- NOTE | 2022-07-02 11:45 | PC.NURSE ---
DR. DENNIS SPEAKING WITH DR. POP
--- NOTE | 2022-07-02 11:50 | PC.NURSE ---
Per pt is going to fu with in the office. staff will contact pt to fu with colonoscopy
--- NOTE | 2022-07-02 11:53 | PC.NURSE ---
DR. DENNIS AT BEDSIDE TO UPDATE FAMILY ON POC
[2022-07-02 12:10] VITALS: BP 161/56; PULSE 78; RESP 18; TEMP 36.5; O2SAT 97
== END 2022-07-02 12:10 | disposition home or self-care (01) ==
PROVIDERS: Emergency Provider Emergency Medicine; PCP Family Medicine
DX: K92.1 Melena (principal); R06.02 Shortness of breath; R94.31 Abnormal electrocardiogram [ECG] [EKG]; R60.0 Localized edema; I27.20 Pulmonary hypertension, unspecified; I48.91 Unspecified atrial fibrillation; I20.9 Angina pectoris, unspecified; R01.1 Cardiac murmur, unspecified; I70.8 Atherosclerosis of other arteries; Z79.01 Long term (current) use of anticoagulants; Z79.02 Long term (current) use of antithrombotics/antiplatelets; Z79.1 Long term (current) use of non-steroidal anti-inflammatories (NSAID); Z79.82 Long term (current) use of aspirin; Z79.899 Other long term (current) drug therapy
CPT/HCPCS: 80053; 82272; 85025; 99283; G0328

== ENCOUNTER → 2022-07-04 11:40 | Outpatient (CLI) | payer MEDICARE, BC, SELFPAY ==
[2022-07-04 12:00] LABS: Hematocrit 33.2 % (37.0-47.0); Hemoglobin 10.5 g/dL (12.2-16.2)
== END ==
PROVIDERS: PCP Family Medicine; Visit Provider Surgery
DX: K62.5 Hemorrhage of anus and rectum (principal)
CPT/HCPCS: 36415; 85014; 85018

== ENCOUNTER 2022-07-12 06:38 | Day surgery (SDC) | payer MEDICARE, BC, SELFPAY ==
[2022-07-12] VITALS (7 sets, daily range): BP systolic 106–151; BP diastolic 61–75; PULSE 69–86; RESP 16–18; TEMP 36.2–37; O2SAT 96–99; BMI 24.0
--- NOTE | 2022-07-12 07:27 | EXP.ANES.CKL ---
[facility] Disclaimer: The information contained in this section may have been updated after the patient was seen, as this information can be updated by other users. 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 Elevated troponin Lower extremity edema Pulmonary hypertension Shortness of Breath Surgical History H/O: hysterectomy History of cholecystectomy Hx of hernia repair Family History Other No significant family history Social History Smoking Status: Never smoker alcohol intake: never substance use type: denies use current occupational status: retired Travel in the last 8 weeks: None [facility] Anesthesia Checklist Patient Identification Patient Identification: Arm Band and Verbal (Name & ) Structural Data Admitted From: Inpatient Planned Operative Procedure/s: COlonoscopy Consent for Planned Operative Procedure(s) Verified: Yes NPO Status Verified Time NPO: 00:00 Airway Assessment C-Spine Mobility Assessed: Yes TMJ Mobility Assessed: Yes Dentition: Edentulous Neurological Assessment Level of Consciousness: Awake Hx Seizures: No Numbness or tingling in extremities: No Anesthesia Plan Anesthesia Risk discussed: Yes Anesthesia Plan: Verified ASA Class: III Anesthesia Type: MAC
--- NOTE | 2022-07-12 08:20 | P.PCN_ITS ---
Procedure: Date: 07/12/22 Patient Date of :: 1935 Procedure Performed:: Colonoscopy with polypectomy Indications:: Bright red blood per rectum Performing Provider:: Aquilino Torres MD Referring Provider:: . Sedation:: Monitored anesthesia care Procedure:: After informed consent was obtained the patient was taken to the endoscopy suite. Sedation ensued after the patient was transferred to the left lateral decubitus position. Pulse, blood pressure, and oxygen saturation were monitored throughout the procedure. Digital rectal exam revealed no significant abnormality. The colonoscope was placed in position. The entire colon was evaluated. The colonoscope was carefully removed and the patient was transferred to recovery in stable condition. Please see findings and specimens below for detail. Findings:: Bowel preparation moderate to poor Profound lack of relaxation Pandiverticulosis (worse in sigmoid/left colon) Patchy colitis Polyps (see specimens) Specimens:: Sessile polyp and its margin of the ileocecal valve (cold snare) Sessile right colon polyp (cold snare) Recommendations:: Timing of repeat colonoscopy is pending pathology but will likely be between 6- 12 months secondary to limitations in visualization Consider barium enema secondary to profound lack of relaxation Consider esophagogastroduodenoscopy to rule out potential upper source with rapid transit Consider UGI/SBFT followed by capsule endoscopy Complications:: No immediate Estimated blood obtained (mL): 1
== END 2022-07-12 09:00 | disposition home or self-care (01) ==
PROVIDERS: PCP Family Medicine; Visit Provider Surgery
PROC: 0DJD8ZZ Inspection of Lower Intestinal Tract, Via Natural or Artificial Opening Endoscopic (ICD-10-PCS; principal; 2022-07-12 07:30)
DX: K62.5 Hemorrhage of anus and rectum (principal); D12.6 Benign neoplasm of colon, unspecified; K57.30 Diverticulosis of large intestine without perforation or abscess without bleeding
CPT/HCPCS: 45385; 88305

== ENCOUNTER 2022-07-24 10:04 | Emergency (ER) | payer MEDICARE, BC, SELFPAY ==
[2022-07-24] VITALS (14 sets, daily range): BP systolic 129–172; BP diastolic 51–123; PULSE 68–88; RESP 16–20; TEMP 37.1; O2SAT 79–97; BMI 22.4
--- NOTE | 2022-07-24 10:20 | PC.NURSE ---
pt has skin tears x2 to R forearm. old dressing removed that pt placed at home, pressure dressing applied.
--- NOTE | 2022-07-24 11:20 | CA_ITS ---
FINAL REPORT TECHNIQUE: Color Doppler, duplex Doppler and compression sonography of the left lower extremity deep venous systems was performed. CLINICAL HISTORY: r/o DVT, history of DVT per patient. Patient states her left leg began hurting 4 days ago, no known trauma. Left leg is swollen and red today. She states she takes Eliquis daily. FINDINGS: There is no evidence of deep venous thrombosis from the level of the groin to the calf. The veins are patent and compressible. There is a nonvascular mass in the popliteal fossa measuring 4.7 cm in length with a nonspecific appearance, neoplasm not excluded. IMPRESSION: No evidence of deep venous thrombosis left lower extremity. 4.7 cm nonvascular mass in the popliteal fossa with nonspecific appearance, neoplasm not excluded. Reviewed, Interpreted and Dictated by Jonathan Elam III, MD Transcribed by Wendy Brown Authenticated and . [facility]
--- NOTE | 2022-07-24 11:50 | PC.NURSE ---
vascular here for doppler study, she advised no dvt but something on back of knee, will let janette read and let us know
--- NOTE | 2022-07-24 12:08 | HMH.EDGENADL ---
Discharge Plan Disposition Patient Disposition: Home, Self-Care Condition: Good Prescriptions Prescriptions: No Action tramadol 50 mg tablet 50 mg PO DAILY pantoprazole 40 mg tablet,delayed release (DR/EC) 40 mg PO BID gabapentin 100 mg capsule 100 mg PO BID Label Comments: TAKE 1 CAPSULE BY MOUTH TWICE DAILY TO IMPROVE HAND SYMPTOMS. atenolol 50 mg tablet 50 mg PO DAILY Label Comments: TAKE 1 TABLET BY MOUTH ONCE DAILY oxycodone 5 mg tablet 5 mg PO DAILY Eliquis 5 mg tablet 5 mg PO BID furosemide 40 mg tablet 40 mg PO DAILY Label Comments: TAKE 1 TABLET BY MOUTH ONCE DAILY NEEDED atorvastatin 20 mg tablet 20 mg PO DAILY clopidogrel 75 mg tablet 75 mg PO DAILY aspirin 81 mg tablet,delayed release (DR/EC) 81 mg PO DAILY Referrals Follow up/Referrals: Manuel Lundberg [Primary Care Provider] - See instructions Activity Restrictions/Add. Instructions Additional Instructions/Restrictions: Home medication as directed. PCP follow-up in 1 to 2 days. Return to ER for fever, worsening swelling or pain in your lower extremity. Clinical Impressions Clinical Impression: Edema of left lower leg, Venous stasis, Popliteal cyst, unruptured Instructions Patient Instructions: DI for Skin Abscess Discharge ED Provider: Bryn Rose General Adult HPI General Chief complaint: Skin/Abscess/Foreign Body Stated complaint: AO [id number] skin tear,right arm,left leg swolle Time Seen by Provider: 07/24/22 10:24 Mode of Arrival: Ambulatory Source of Information: Patient Limitations: No Limitations Description of Symptoms (Recalled from ER Triage Doc. by RN): Pt presents to ED r/t skin tear x2 to R forearm that continue to bleed. Pt reports slipped while getting into bed yesterday. Pt reports on Eliquis r/t afib. Pt reports did not take her eliquis today r/t continued bleeding of her arm. Pt also reports LLE swelling and pain for approx 1 week. Pt states no known injury to LLE. 3+ edema noted to LLE, + pulses. History of Present Illness HPI narrative: 87yo F with past medical history of CAD, chronic anticoagulation, A. fib, pulmonary hypertension and CHF presents to the emergency department secondary to 2 skin tears on her right upper extremity and a swollen left leg. Reports a swollen left lower extremity is been ongoing for several days and progressively worsening. She attributes this to her arthritis but concerned there might be a blood clot. Patient's son accompanies her and augments her history. Patient fell last night, 12 hours prior to arrival. She denies any pain, no head strike, no LOC. Reports she landed on her bottom. Patient is chronically anticoagulated. Has no neurodeficits since time of her fall. Related Data Home Medications Medication Instructions Recorded Confirmed apixaban 5 mg tablet (Eliquis) 5 mg PO BID Atrial fib 05/17/22 07/19/22 atenolol 50 mg tablet 50 mg PO DAILY heart rate 05/17/22 07/19/22 gabapentin 100 mg capsule 100 mg PO BID neuropathy 05/17/22 07/19/22 oxycodone 5 mg tablet 5 mg PO DAILY Pain 05/17/22 07/19/22 pantoprazole 40 mg tablet,delayed 40 mg PO BID acid reflux 05/17/22 07/19/22 release tramadol 50 mg tablet 50 mg PO DAILY Pain 05/17/22 07/19/22 aspirin 81 mg tablet,delayed 81 mg PO DAILY Supplement 07/12/22 07/19/22 release atorvastatin 20 mg tablet 20 mg PO DAILY Cholesterol 07/12/22 07/19/22 clopidogrel 75 mg tablet 75 mg PO DAILY Blood thinner 07/12/22 07/19/22 furosemide 40 mg tablet 40 mg PO DAILY Fluid 07/12/22 07/19/22 Allergies Allergy/AdvReac Type Severity Reaction Status Date / Time No Known Allergies Allergy Verified 07/19/22 10:31 [facility] Disclaimer: The information contained in this section may have been updated after the patient was seen, as this information can be updated by other users. Medical History Abno
--- NOTE | 2022-07-24 13:20 | PC.NURSE ---
skin tear to RUE continued to bleed through pressure dressing. Notified ER MD, used silver nitrate stick to help with bleeding, non-successful. ER MD had me hold pressure with gauze soaked oxymetazoline spray, after approx 5 minutes of pressure with that gauze bleeding stopped. Steri strips applied to wound and to other skin tear on lower R arm. Telfa pad applied nad wrapped in coban. Pt tolerated well.
[2022-07-24 13:39] LABS: Basophils # 0.1 K/mm3 (0-0.2); Basophils % 0.6 % (0.1-2.0); Eosinophils # 0.1 K/mm3 (0.0-0.4); Eosinophils % 1.1 % (0.1-12.0); Hematocrit 33.1 % (37.0-47.0); Hemoglobin 10.6 g/dL (12.2-16.2); Lymphocytes # 1.4 K/mm3 (0.7-4.5); Lymphocytes % 14.6 % (10-50); Mean Corpuscular HGB Conc 31.9 g/dL (31.8-35.4); Mean Platelet Volume 7.6 fl (7.4-10.4); Monocytes # 0.5 K/mm3 (0.1-1.0); Monocytes % 5.4 % (1.7-9.3); Neutrophils # 7.6 K/mm3 (1.8-7.8); Neutrophils % 78.3 % (37.0-80.0); Platelet Count 347 K/mm3 (142-424); Red Blood Count 3.41 M/mm3 (4.20-5.40); Red Cell Distribution Width 13.7 % (11.5-17.5); White Blood Count 9.7 K/mm3 (4.8-10.8)
[2022-07-24 13:42] LABS: Chloride 98 mmol/L (98-107); Sodium 137 mmol/L (136-145)
[2022-07-24 13:45] LABS: Alanine Aminotransferase 24 U/L (12-78); Albumin Level 3.3 g/dl (3.5-5.0); Albumin/Globulin Ratio 1.1 (1.1-1.8); Alkaline Phosphatase 99 U/L (38-126); Aspartate Amino Transferase 44 U/L (14-36); Blood Urea Nitrogen 13 mg/dl (7-17); Calcium 8.4 mg/dl (8.4-10.2); Carbon Dioxide 35 mmol/L (22.0-30.0); Creatinine Clearance Estimated 40 mL/min (50-200); Estimated Glomerular Filt Rate 95 ml/min (>60); GFR (African American) 115 ML/MIN (>60); Globulin 3.1 g/dL (1.3-3.2); Glucose 103 mg/dl (74-100); Total Protein,Serum 6.4 g/dl (6.3-8.2)
[2022-07-24 13:47] LABS: INR 1.27 (0.9-1.1); Prothrombin Time 13.5 seconds (10.1-12.5)
--- NOTE | 2022-07-24 13:50 | CT_ITS ---
FINAL REPORT TECHNIQUE: Axial imaging of the left leg was obtained after the intravenous administration of contrast. This study was performed with techniques to keep radiation doses as low as reasonably achievable (ALARA). Individualized dose reduction techniques using automated exposure control or adjustment of mA and/or kV according to the patient's size were employed. CLINICAL HISTORY: abnormal US, mass-- left leg popliteal region COMPARISON: Ultrasound performed same day FINDINGS: There are severe degenerative changes noted. Chronic irregularity is seen of the proximal tibia of uncertain etiology. Findings may represent enchondroma or other benign process. There is a moderate-sized joint effusion. A lobular, peripherally enhancing mass is again seen in the popliteal fossa measuring up to 5.7 cm corresponding to findings from ultrasound performed today. This has an appearance most consistent with complex popliteal cyst. There are several loose bodies posteriorly. There is circumferential edema. Widespread vascular calcifications are noted. IMPRESSION: Lobular, peripherally enhancing mass in the popliteal cyst fossa, corresponding to findings from today's ultrasound, with an appearance most consistent with complex, popliteal cyst. Reviewed, Interpreted and Dictated by Jonathan Elam III, MD Transcribed by Rebeca Hernandez Authenticated and [facility]
--- NOTE | 2022-07-24 13:59 | PC.NURSE ---
rad notified of ct order
--- NOTE | 2022-07-24 14:24 | PC.NURSE ---
pt to ct
--- NOTE | 2022-07-24 15:41 | PC.NURSE ---
contacted rad to check on status of ct results, staff states is it locked in being read status at this time
== END 2022-07-24 16:44 | disposition home or self-care (01) ==
PROVIDERS: Emergency Provider Family Medicine; PCP Family Medicine
DX: S41.111A Laceration without foreign body of right upper arm, initial encounter (principal); I87.2 Venous insufficiency (chronic) (peripheral); R60.0 Localized edema; M71.22 Synovial cyst of popliteal space [Baker], left knee; I48.91 Unspecified atrial fibrillation; I25.10 Atherosclerotic heart disease of native coronary artery without angina pectoris; I27.20 Pulmonary hypertension, unspecified; I50.9 Heart failure, unspecified; W01.0XXA Fall on same level from slipping, tripping and stumbling without subsequent striking against object, initial encounter; Z79.01 Long term (current) use of anticoagulants; Z90.710 Acquired absence of both cervix and uterus; Z90.49 Acquired absence of other specified parts of digestive tract
CPT/HCPCS: 73701; 80053; 85025; 85610; 93971; 99285; Q9967

== ENCOUNTER 2022-12-20 09:34 | Emergency (ER) | payer MEDICARE, BC, SELFPAY ==
--- NOTE | 2022-12-20 09:30 | PC.NURSE ---
[id number] DR WARD AT BEDSIDE
--- NOTE | 2022-12-20 09:32 | CT_ITS ---
FINAL REPORT CLINICAL HISTORY: Closed head injury, dementia, on Eliquis FINDINGS: Moderate generalized atrophy. No cortical edema is present. There is no mass or hemorrhage. Ventriculomegaly disproportionate to the degree of atrophy. Normal pressure hydrocephalus is not excluded. Bone windows show no skull fracture or obvious obstructive lesion. IMPRESSION: 1. No acute intracranial abnormality or obvious mass. 2. Ventriculomegaly disproportionate to the degree of atrophy. Normal pressure hydrocephalus is not excluded. Reviewed, Interpreted and Dictated by Elaine Saldana MD Transcribed by Naomi Santoro Authenticated and [facility]
--- NOTE | 2022-12-20 09:32 | XR_ITS ---
FINAL REPORT CLINICAL HISTORY: Fall, forearm injury skin tear from fall FINDINGS: 2 views of the left forearm were obtained. There is no acute fracture or dislocation. The bones are osteopenic. The joints are intact. There are no soft tissue abnormalities. IMPRESSION: No acute process. Reviewed, Interpreted and Dictated by Elaine Saldana MD Transcribed by Naomi Santoro Authenticated and [facility]
[2022-12-20 09:33] VITALS: BP 151/54; PULSE 84; RESP 17; TEMP 36.6; O2SAT 98; BMI 25.0
--- NOTE | 2022-12-20 09:33 | HMH.EDFALL ---
Discharge Plan Disposition Patient Disposition: Home, Self-Care Condition: Fair Prescriptions Prescriptions: No Action pantoprazole 40 mg tablet,delayed release (DR/EC) 40 mg PO BID gabapentin 100 mg capsule 100 mg PO BID Label Comments: TAKE 1 CAPSULE BY MOUTH TWICE DAILY TO IMPROVE HAND SYMPTOMS. atenolol 50 mg tablet 50 mg PO DAILY Label Comments: TAKE 1 TABLET BY MOUTH ONCE DAILY Eliquis 5 mg tablet 5 mg PO BID tramadol 50 mg tablet 50 mg PO BID oxycodone 5 mg tablet 5 mg PO HS furosemide 40 mg tablet 40 mg PO DAILY Label Comments: TAKE 1 TABLET BY MOUTH ONCE DAILY NEEDED atorvastatin 20 mg tablet 20 mg PO DAILY clopidogrel 75 mg tablet 75 mg PO DAILY aspirin 81 mg tablet,delayed release (DR/EC) 81 mg PO DAILY Activity Restrictions/Add. Instructions Additional Instructions/Restrictions: Keep all follow-up appointments as scheduled. Return to the emergency department if worse in any way. Change the dressing to your forearm once a day. The x-ray and CT today did not show any acute abnormalities. Clinical Impressions Clinical Impression: Skin tear Contusion of forehead Qualifiers: Encounter type: initial encounter Qualified Code(s): S00.83XA - Contusion of other part of head, initial encounter Instructions Patient Instructions: DI for Contusion, How to Prevent Falls Discharge ED Provider: Sean Adame HPI General Chief Complaint: Fall Stated Complaint: fall Time Seen by Provider: 12/20/22 09:34 Mode of Arrival: EMS Source of Information: Patient Limitations: Altered Mental Status (Dementia) History of Present Illness HPI Narrative: The patient presents to the emergency department by ambulance [facility] The patient has significant dementia and is confused at baseline. She sustained a contusion to the forehead and complains of right upper extremity pain. She is on Eliquis because she has had several coronary artery stents. complaint: fall Related Data Home Medications Medication Instructions Recorded Confirmed apixaban 5 mg tablet (Eliquis) 5 mg PO BID Atrial fib 05/17/22 08/28/22 atenolol 50 mg tablet 50 mg PO DAILY heart rate 05/17/22 08/28/22 gabapentin 100 mg capsule 100 mg PO BID neuropathy 05/17/22 08/28/22 pantoprazole 40 mg tablet,delayed 40 mg PO BID acid reflux 05/17/22 08/28/22 release aspirin 81 mg tablet,delayed 81 mg PO DAILY Supplement 07/12/22 08/28/22 release atorvastatin 20 mg tablet 20 mg PO DAILY Cholesterol 07/12/22 08/28/22 clopidogrel 75 mg tablet 75 mg PO DAILY Blood thinner 07/12/22 08/28/22 furosemide 40 mg tablet 40 mg PO DAILY Fluid 07/12/22 08/28/22 oxycodone 5 mg tablet 5 mg PO HS Pain 08/28/22 08/28/22 tramadol 50 mg tablet 50 mg PO BID Pain 08/28/22 08/28/22 Allergies Allergy/AdvReac Type Severity Reaction Status Date / Time No Known Allergies Allergy Verified 08/28/22 11:[address] [facility] Disclaimer: The information contained in this section may have been updated after the patient was seen, as this information can be updated by other users. Medical History Abnormal electrocardiogram [ECG] [EKG] Afib Atypical angina Bilateral carotid bruits CHF (congestive heart failure) Current use of residential anticoagulation Elevated troponin Lower extremity edema Pulmonary hypertension Shortness of Breath Surgical History H/O: hysterectomy History of cholecystectomy History of colonoscopy Hx of hernia repair Family History Other No significant family history Social History Smoking Status: Never smoker alcohol intake: never substance use type: denies use current occupational status: retired Travel
--- NOTE | 2022-12-20 09:44 | PC.NURSE ---
FAMILY AT BEDSIDE AT THIS TIME. UPDATED ON POC
--- NOTE | 2022-12-20 09:50 | PC.NURSE ---
XR AT BEDSIDE
--- NOTE | 2022-12-20 09:57 | PC.NURSE ---
PT TO CT
--- NOTE | 2022-12-20 10:06 | PC.NURSE ---
PT RETURNED FROM CT
--- NOTE | 2022-12-20 10:27 | PC.NURSE ---
rounded on pt in room to see if they had any needs. pt stated no needs at this time
[2022-12-20 10:30] VITALS: BP 118/69; PULSE 79; O2SAT 99
--- NOTE | 2022-12-20 10:50 | PC.NURSE ---
FAMILY REPORTS SORE TO RIGHT FOOT, BETWEEN PINKY AND 4TH TOE. FAMILY HAS DRY GAUZE TO SITE. PT CURRENTLY ON ABX FROM PCP
[2022-12-20 11:00] VITALS: BP 124/50; PULSE 78; O2SAT 98
[2022-12-20 12:40] VITALS: BP 112/68; PULSE 86; RESP 17; TEMP 36.6; O2SAT 98
== END 2022-12-20 12:40 | disposition home or self-care (01) ==
PROVIDERS: Emergency Provider Emergency Medicine; PCP Family Medicine
DX: S00.83XA Contusion of other part of head, initial encounter (principal); R41.82 Altered mental status, unspecified; F03.90 Unspecified dementia, unspecified severity, without behavioral disturbance, psychotic disturbance, mood disturbance, and anxiety; M79.601 Pain in right arm; I48.91 Unspecified atrial fibrillation; I50.9 Heart failure, unspecified; I27.20 Pulmonary hypertension, unspecified; Z79.01 Long term (current) use of anticoagulants; W19.XXXA Unspecified fall, initial encounter
CPT/HCPCS: 70450; 73090; 96360; 99284

== ENCOUNTER 2023-02-01 12:12 | Inpatient (IN) | payer MEDICARE, BC, SELFPAY ==
[2023-02-01] VITALS (10 sets, daily range): BP systolic 108–150; BP diastolic 48–91; PULSE 60–75; RESP 16–26; TEMP 36.4–36.7; O2SAT 92–99; BMI 27.4; BMI 25.1
--- NOTE | 2023-02-01 12:35 | PC.NURSE ---
DR GUARDADO AT BEDSIDE
--- NOTE | 2023-02-01 12:40 | XR_ITS ---
FINAL REPORT CLINICAL HISTORY: pain FINDINGS: AP and frog leg views of the left hip were obtained. There is no prior exam for comparison. There is no acute fracture or dislocation. The bones are osteopenic. 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 Soft tissues are within normal limits. IMPRESSION: Avascular necrosis of the bilateral femoral heads. If indicated, consider CT. Reviewed, Interpreted and Dictated by Alejandra Paul MD Transcribed by Dayna Bunch Authenticated and [facility]
--- NOTE | 2023-02-01 12:40 | XR_ITS ---
FINAL REPORT CLINICAL HISTORY: pain with ambulation FINDINGS: Three views of the right foot were obtained. No priors are available for comparison. There is severe osteopenia. Multi joint degenerative disease is identified. Note is made of vascular calcification. No acute soft tissue abnormality is identified. IMPRESSION: Severe osteopenia. No displaced fracture identified. Reviewed, Interpreted and Dictated by Alejandra Paul MD Transcribed by Dayna Bunch Authenticated and [facility]
--- NOTE | 2023-02-01 12:40 | XR_ITS ---
FINAL REPORT CLINICAL HISTORY: pain with ambulation FINDINGS: Two views of the left foot were obtained. No priors are available for comparison. There is severe osteopenia. No displaced fracture is identified. There is multi joint degenerative disease. Note is made of vascular calcification. IMPRESSION: Limited exam secondary to severe osteopenia. No displaced fracture identified. If indicated, consider CT. Reviewed, Interpreted and Dictated by Alejandra Paul MD Transcribed by Dayna Bunch Authenticated and [facility]
--- NOTE | 2023-02-01 12:40 | XR_ITS ---
FINAL REPORT CLINICAL HISTORY: soa COMPARISON: 05/17/2022 FINDINGS: A single PA view of the chest was obtained. There is stable cardiomegaly. The mediastinum is unremarkable. There is a new left perihilar opacity. There is a new right basilar opacity. Left basilar opacity is stable. Findings could represent atelectasis or pneumonia. Likely small effusions are identified. There is no pneumothorax. IMPRESSION: Bilateral opacities as above, could represent atelectasis or pneumonia with likely small effusions. Recommend upright PA and lateral when patient can tolerate. Reviewed, Interpreted and Dictated by Alejandra Paul MD Transcribed by Dayna Bunch Authenticated and [facility]
--- NOTE | 2023-02-01 12:42 | XR_ITS ---
FINAL REPORT CLINICAL HISTORY: pain FINDINGS: Two views of the left femur were obtained. No priors are available for comparison. Evaluation for fracture is limited by osteopenia. No displaced fracture is identified. There is advanced degenerative disease of the knee. Small joint effusion is identified. IMPRESSION: No displaced fracture. If clinical concern persists, consider CT. Reviewed, Interpreted and Dictated by Alejandra Paul MD Transcribed by Dayna Bunch Authenticated and [facility]
--- NOTE | 2023-02-01 12:44 | HMH.EDGENADL ---
Discharge Plan Disposition Chief Complaint: Extremity Injury, Lower Clinical Impressions Clinical Impression: Pleural effusion, Pneumonia, Avascular necrosis, Declining functional status Discharge ED Provider: Mayra Fields General Adult HPI <Christian Caceres MD - Last Filed: 02/01/23 15:55> General Chief complaint: Extremity Injury, Lower Stated complaint: weakness Time Seen by Provider: 02/01/23 12:13 Mode of Arrival: EMS Source of Information: Patient and Spouse Limitations: Altered Mental Status Description of Symptoms (Recalled from ER Triage Doc. by RN): Presents via EMS d/t LLE pain that started yesterday while attempting to use bedside commode. reports she may have hit her leg against her walker during that time. Since, patient has been NWB d/t pain. A&O name, place, and situation. (Baseline, Hx of dementia). +abd, UTI. History of Present Illness HPI narrative: Patient is a 87-year-old female with past medical history of atrial fibrillation, CHF, debility who presents to the emergency department for evaluation of lower extremity pain. History is obtained by patient and family member at bedside as patient has dementia. Over the last few days patient has been diagnosed with a urinary tract infection and has had progressive functional decline from her baseline (can get around with assistance with walker however now with full assist). While getting up to attempt to use the bedside commode today patient may have hit her left leg against a walker. She has bilateral ankle pain, left hip pain. She was eased to the floor, no additional trauma, did not hit her head. Patient also had intermittent shortness of breath this morning. No other acute complaints at this time. Related Data Home Medications Medication Instructions Recorded Confirmed apixaban 5 mg tablet (Eliquis) 5 mg PO BID Atrial fib 05/17/22 02/01/23 atenolol 50 mg tablet 50 mg PO DAILY heart rate 05/17/22 02/01/23 gabapentin 100 mg capsule 100 mg PO BID neuropathy 05/17/22 02/01/23 pantoprazole 40 mg tablet,delayed 40 mg PO BID acid reflux 05/17/22 02/01/23 release atorvastatin 20 mg tablet 20 mg PO DAILY Cholesterol 07/12/22 02/01/23 clopidogrel 75 mg tablet 75 mg PO DAILY Blood thinner 07/12/22 02/01/23 furosemide 40 mg tablet 40 mg PO DAILY Fluid 07/12/22 02/01/23 oxycodone 5 mg tablet 5 mg PO HS Pain 08/28/22 02/01/23 tramadol 50 mg tablet 50 mg PO BID Pain 08/28/22 02/01/23 quetiapine 25 mg tablet 25 mg PO HS Insomnia 02/01/23 02/01/23 sulfamethoxazole 800 160 tab PO BID Infection 02/01/23 02/01/23 mg-trimethoprim 160 mg tablet Allergies Allergy/AdvReac Type Severity Reaction Status Date / Time No Known Allergies Allergy Verified 08/28/22 11:23 PFS <Christian Caceres MD - Last Filed: 02/01/23 15:55> COUNT INCLUDES THE [facility] Disclaimer: The information contained in this section may have been updated after the patient was seen, as this information can be updated by other users. Medical History Abnormal electrocardiogram [ECG] [EKG] Afib Atypical angina Bilateral carotid bruits CHF (congestive heart failure) Current use of half-way anticoagulation Elevated troponin Lower extremity edema Pulmonary hypertension Shortness of Breath Surgical History H/O: hysterectomy History of cholecystectomy History of colonoscopy Hx of hernia repair Family History Other No significant family history Social History Smoking Status: Smoker, status unknown alcohol intake: never substance use type: denies use current occupational status: retired Travel in the last 8 weeks: None <Christian Caceres MD - Last Filed: 02/01/23 15:55> ROS Obtained: Yes Systems reviewed as appropriate & no additional complaints except as documented Physical Exam <Wesl
--- NOTE | 2023-02-01 12:46 | ECG_ITS ---
APPROVED REPORT Exam: Resting ECG HR:71 bpm ECG Measurements Heart Rate 71 AXES QRSd 79 QRS 105 QT 396 T 62 QTc 418 Conclusion ATRIAL FIBRILLATION LOW QRS VOLTAGE [QRS DEFLECTION < 0.5/1.0 mV IN LIMB/CHEST LEADS] SEPTAL MYOCARDIAL INFARCTION , PROBABLY OLD ABNORMAL ECG UNCONFIRMED REPORT Electronically signed by : Yovani Vásquez MD 02/01/2023 21:23:01
--- NOTE | 2023-02-01 12:57 | PC.NURSE ---
rounded on patient given blankets, family at bedside
--- NOTE | 2023-02-01 13:27 | PC.NURSE ---
Assisted Soila Aquino RN in changing bed and repositioning patient. Patient placed on bedpan
--- NOTE | 2023-02-01 13:35 | PC.NURSE ---
patient removed from bedpan, urine sample obtained and sent to lab
[2023-02-01 13:48] LABS: Microscopic, Urine URINE MICROSCOPIC (MICROSCOPIC)
[2023-02-01 13:53] LABS: Alanine Aminotransferase 32 U/L (12-78); Alkaline Phosphatase 145 U/L (38-126); Anion Gap 7.5 mEq/L (5-15); Aspartate Amino Transferase 60 U/L (14-36); Bilirubin,Total 0.7 mg/dl (0.2-1.3); Blood Urea Nitrogen 16 mg/dl (7-17); Calcium 8.3 mg/dl (8.4-10.2); Carbon Dioxide 36 mmol/L (22.0-30.0); Chloride 98 mmol/L (98-107); Creatinine Clearance Estimated 50 mL/min (50-200); Estimated Glomerular Filt Rate 60 ml/min (>60); GFR (African American) 72 ML/MIN (>60); Globulin 3.1 g/dL (1.3-3.2); Glucose 84 mg/dl (74-100); Potassium 4.5 mmoL/L (3.5-5.1); Sodium 137 mmol/L (136-145); Total Protein,Serum 6.1 g/dl (6.3-8.2)
[2023-02-01 14:04] LABS: Appearance,Urine CLEAR (Clear); Bilirubin,Urine Negative (Negative); Blood, Urine 2+ (Negative); Color,Urine YELLOW (Yellow); Glucose,Urine (UA) Negative (Negative); Ketones,Urine Negative (Negative); Leukocyte Esterase,Urine Negative (Negative); Nitrate,Urine Negative (Negative); PH,Urine 6.5 (5.0-8.5); Protein,Urine Negative (Negative); Specific Gravity, Urine <= 1.005 (1.005-1.030)
[2023-02-01 14:06] LABS: Troponin I < 0.01 ng/ml (0.00-0.034)
[2023-02-01 14:27] LABS: Bacteria,Urine Trace /lpf
[2023-02-01 15:18] LABS: Basophils % 0.8 % (0.1-2.0); Eosinophils % 2.3 % (0.1-12.0); Hematocrit 31.6 % (37.0-47.0); Hemoglobin 10.1 g/dL (12.2-16.2); Lymphocytes % 15.8 % (10-50); Mean Corpuscular Hemoglobin 30.2 pg (27.0-31.2); Mean Corpuscular Volume 94.6 fl (81-99); Mean Platelet Volume 9.4 fl (7.4-10.4); Monocytes % 11.3 % (1.7-9.3); Neutrophils % 69.6 % (37.0-80.0); Platelet Count 212 K/mm3 (142-424); Red Blood Count 3.34 M/mm3 (4.20-5.40); Red Cell Distribution Width 15.5 % (11.5-17.5)
[2023-02-01 15:19] LABS: NT Pro Brain Natriuretic Pep. 4230 pg/mL (0-450)
[2023-02-01 15:19] LABS: Eosinophils # 0.1 K/mm3 (0.0-0.4); Lymphocytes # 0.8 K/mm3 (0.7-4.5); Monocytes # 0.6 K/mm3 (0.1-1.0); Neutrophils # 3.6 K/mm3 (1.8-7.8); White Blood Count 5.2 K/mm3 (4.8-10.8)
--- NOTE | 2023-02-01 15:20 | PC.NURSE ---
Vascular at bedside for doppler study
--- NOTE | 2023-02-01 15:59 | PC.NURSE ---
rounded on pt. warm blanket provided, no needs at this time.
--- NOTE | 2023-02-01 16:09 | PC.NURSE ---
DR MONTANO SPEAKING WITH DR SAM
--- NOTE | 2023-02-01 16:11 | PC.NURSE ---
DR GONZALEZ SPEAKING WITH HOSPITALIST FOR ADMISSION
[2023-02-01 16:53] LABS: Troponin I < 0.01 ng/ml (0.00-0.034)
--- NOTE | 2023-02-01 17:11 | PC.NURSE ---
charge nurse spoke with warehouse man for bed placement
--- NOTE | 2023-02-01 18:40 | EXP.HP ---
History of Present Illness *Admission Date: 02/01/23 *Reason for visit:: generalized weakness *History of present illness: Mrs. Mendoza is an 87 year old woman with a past medical history of hypertension and hyperlipidemia who presented to the ED with her because of 1 month of generalized weakness. Weakness has been progressive and today she was unable to get out of bed on her own. She lives with her who is does not believe he can adquately take care of her at home. She was recently diagnosed with a UTI for which she took 5 days of Bactrim. She denies fever and dysuria. She denies cough, shortness of breath, chest pain, abdominal pain and diarrhea. She believes she twisted her left ankle a few days ago and states that it hurts when she bears weight on it. [facility] Disclaimer: The information contained in this section may have been updated after the patient was seen, as this information can be updated by other users. 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 Elevated troponin Lower extremity edema Pulmonary hypertension Shortness of Breath Surgical History H/O: hysterectomy History of cholecystectomy History of colonoscopy Hx of hernia repair Family History Other No significant family history Social History Smoking Status: Smoker, status unknown alcohol intake: never substance use type: denies use current occupational status: retired Travel in the last 8 weeks: None Review of Systems Review of Systems Review of systems:: pertinent systems reviewed and negative unless documented below Constitutional Constitutional: Reports weakness *Musculoskeletal Comments: left ankle pain3 *Neurologic Neurologic: Reports weakness Meds Home Medications and Allergies Home Medications Medication Instructions Recorded Confirmed Type apixaban 5 mg tablet (Eliquis) 5 mg PO BID Atrial fib 05/17/22 02/01/23 History atenolol 50 mg tablet 50 mg PO DAILY heart rate 05/17/22 02/01/23 History gabapentin 100 mg capsule 100 mg PO BID neuropathy 05/17/22 02/01/23 History pantoprazole 40 mg tablet,delayed 40 mg PO BID acid reflux 05/17/22 02/01/23 History release atorvastatin 20 mg tablet 20 mg PO DAILY Cholesterol 07/12/22 02/01/23 History clopidogrel 75 mg tablet 75 mg PO DAILY Blood thinner 07/12/22 02/01/23 History furosemide 40 mg tablet 40 mg PO DAILY Fluid 07/12/22 02/01/23 History oxycodone 5 mg tablet 5 mg PO HS Pain 08/28/22 02/01/23 History tramadol 50 mg tablet 50 mg PO BID Pain 08/28/22 02/01/23 History quetiapine 25 mg tablet 25 mg PO HS Insomnia 02/01/23 02/01/23 History sulfamethoxazole 800 160 tab PO BID Infection 02/01/23 02/01/23 History mg-trimethoprim 160 mg tablet New Prescriptions to Start Prescriptions: Allergies Allergy/AdvReac Type Severity Reaction Status Date / Time No Known Allergies Allergy Verified 08/28/22 11:23 Exam Data for Last 24 hours Vital signs and Labs for Last 24 Hours: Temp Pulse Resp BP Pulse Ox O2 Del Method O2 Flow Rate 97.5 F L 65 26 H 125/91 H 99 Nasal Cannula 2 02/01/23 18:18 02/01/23 18:18 02/01/23 18:18 02/01/23 18:18 02/01/23 18:18 02/01/23 18:18 02/01/23 18:18 Laboratory Results - last 24 hr 02/01/23 13:20: WBC 5.2, RBC 3.34 L, Hgb 10.1 L, Hct 31.6 L, MCV 94.6, MCH 30.2, MCHC 32.0, RDW 15.5, Plt Count 212, MPV 9.4, Neut % (Auto) 69.6, Lymph % (Auto) 15.8, [place] % (Auto) 11.3 H, Eos % (Auto) 2.3, Baso % (Auto) 0.8, Neut # (Auto) 3.6, Lymph # (Auto) 0.8, [place] # (Auto) 0.6, Eos # (Auto) 0.1, Baso # (Auto) 0.0, Sodium 137, Potassium 4.5, Chloride 98, Carbon Dioxide 36 H, Anion Gap 7.5, BUN 16, C
--- NOTE | 2023-02-01 18:47 | PC.WOUNDNOTE ---
AREA TO THE LEFT SIDE OF BELLY BUTTON. NEW DRESSING APPLIED, CDI.
--- NOTE | 2023-02-01 19:00 | PC.NURSE ---
PT IS A&OX4 SINCE ARRIVAL TO FLOOR, INTERMITTENT CONFUSION NOTED. IS VERY [place]. AND SON AT BEDSIDE. HOME MEDS WILL BE LOCKED IN DRAWER. PT HAS MULTIPLE SKIN ISSUES, CHARTED IN BIO AND WOUND NOTE. PURE WICK IN PLACE D/T SKIN INTEGRITY AND SAFETY OF PT-FALL RISK. BED ALARM WILL BE APPLIED WHEN FAMILY LEAVES. NO OTHER NEEDS OR C/O. PT SITTING UP IN BED EATING SANDWICH. VSS.
[2023-02-01 19:50] LABS: Troponin I < 0.01 ng/ml (0.00-0.034)
[2023-02-02] VITALS: BP 126/51; PULSE 69; PULSE 73; RESP 16; TEMP 36.8; O2SAT 92
--- NOTE | 2023-02-02 03:47 | PC.NURSE ---
SOME ORDERS WERE SUBMITTED AFTER 2300 AND WERE MISSED AND NOT CONFIRMED TIL AFTER 3 AM. THE PATIENT WAS ADMITTED ON DAYSHIFT.
[2023-02-02 04:00] VITALS: BP 143/66; PULSE 72; PULSE 77; RESP 18; TEMP 36.8; O2SAT 91; BMI 26.4
--- NOTE | 2023-02-02 04:12 | PC.NURSE ---
HAS RESTED WELL THIS SHIFT. NAD. NO COMPLAINTS.
--- NOTE | 2023-02-02 06:51 | PC.NURSE ---
PATIENT HAS PULLED HER IV OUT. WILL PASS ON TO DAYSHIFT .
[2023-02-02 08:00] VITALS: BP 153/61; PULSE 79; RESP 18; TEMP 36.6; O2SAT 96
--- NOTE | 2023-02-02 08:46 | PC.NURSE ---
TECH NOTE; NOTIFIED NURSE OF BLOOD PRESSURE FOR 0800 VITAL SIGNS Sigifredo ALMODOVAR, SRNA
--- NOTE | 2023-02-02 10:11 | HMH.PHAINT1 ---
Pharmacy Intervention Comments: Patients home medications were reviewed and verified using the external history resource and a discharge packet from 12/20/22. -Mike Monet, PharmD Student
--- NOTE | 2023-02-02 10:22 | HMH.OTEV ---
OT Inpatient Evaluation Rehab OT IP Evaluation Start: 02/01/23 16:45 Freq: ONCE Status: Active Protocol: Document 02/02/23 10:03 KRISTOPHER (Rec: 02/02/23 10:22 KRISTOPHER [id number]) Rehab OT IP Assessment Subjective History Mrs. Mendoza is an 87 year old woman with a past medical history of hypertension and hyperlipidemia who presented to the ED with her because of 1 month of generalized weakness. Weakness has been progressive and today she was unable to get out of bed on her own. She lives with her who is does not believe he can adquately take care of her at home. She was recently diagnosed with a UTI for which she took 5 days of Bactrim. She denies fever and dysuria. She denies cough, shortness of breath, chest pain, abdominal pain and diarrhea. She believes she twisted her left ankle a few days ago and states that it hurts when she bears weight on it. Patient lives with . Patient unable to provide the accurate PLOF with ADLs and fx 'l mobility at this time. Subjective I don't know if I can get up. Instructed Patient on proper hand and foot placement to complete supine->sit @ EOB-> stand requiring Max A X2. Patient stood <30 secs each time. Patient demonstrated poor static standing balance during initial evaluation and requested to lay back in bed. Patient required Max A x2 from stand->supine. Left Patient laying in bed with needs met at end of session. Objective Patient Orientation Person,Place,Name,Age,Birthday ,Year Upper Extremity Gross ROM WFL Bed Mobility
--- NOTE | 2023-02-02 10:27 | HMH.PTEV ---
Physical Therapy Evaluation Rehab PT IP Evaluation Start: 02/01/23 16:47 Freq: ONCE Status: Active Protocol: Document 02/02/23 10:11 NIRMALA (Rec: 02/02/23 10:27 NIRMALA [id number]) Subjective/History History History Pt is a 87 year old female that presented to the ED with her on 02/01/2023 with reports of generalized weakness for 1 month. Pt lives at home with her , he feels that he is not longer able to care for her. Pt denied reports of cough, shortness of breath, chest pain, abdominal pain or diarrhea. Pt reported L ankle pain, believes she may have twisted it a few days ago and is painful when she bears weight on it. PMH: HTN, Abnormal electrocardiogram [ECG] [EKG], Afib, Atypical angina, Bilateral carotid bruits, CHF (congestive heart failure), Current use of residential anticoagulation, Elevated troponin, Lower extremity edema, Pulmonary hypertension, Shortness of Breath Subjective Subjective Pt presents supine in bed, alert and oriented to self. Agreeable to therapy evaluation. Pt denies reports of pain. Pt performed supine to sit on EOB with mod A x2 to assist with placement of BLE's off EOB and trunk to an upright position. Pt able to maintain static sitting on EOB with CGA and BUE support. Pt performed sit to stand with mod A X2, unable to achieve a fully upright position despite verbal/tactile cues. Following evaluation, pt left supine in bed with call light and all needs within reach. Bed alarm active Rehab PT IP Eval Objective Appearance Patient Behavior
--- NOTE | 2023-02-02 11:35 | SW/DCPLANNER ---
Addendum entered by [facility] 02/05/23 12:51: Lala huang/ [facility] stated that home health services will start this week for this patient. Addendum entered by [facility] 02/05/23 09:44: Patient information/order has been faxed to [facility]. Addendum entered by [facility] 02/02/23 15:39: [facility] and [facility] is able to accept this patient under SARA. Patient's family does NOT want to pay private pay rate and would refer to return home, resume home health services ([facility]) and have family support. I have relayed message to Dr Escamilla. I have also update patient/family that they could be ready for discharge later today or tomorrow. Family has no further questions at this time. Addendum entered by [facility] 02/02/23 14:55: Candace huang/ [facility] is not able to accept this patient. Mayra huang/ [facility] is looking over referral at this time. Addendum entered by [facility] 02/02/23 13:49: Meg huang/ [facility] has denied this patient. Izzy huang/ [facility] stated that patient would require 30 day payment up front ($8,100) and I have informed family. Family stated that they will contact Izzy. I am still waiting to hear back from [facility], [facility], [facility] and [facility]. I have also presented family w/ Private Sitters List. Original Note: I spoke with patient's and son regarding plans once medically stable for discharge. PT/OT evaluated patient and recommended SNF level of care. I explained to patient's family that due to OBS patient will not have qualifying stay and will require private pay at LTC. After a lengthy conversation with family Medicaid pending was discussed and I have asked Pascual huang/ [facility] to follow up with family. I did explain SARA pending at LT and family is agreeable. Family is also agreeable for patient information to be faxed to the following facilities: [facility], [facility], [facility], [facility], [facility] and [facility]. Per MD patient is medically stable for discharge and I have updated family. I will continue to follow up with patient/family, MD and facilities.
[2023-02-02 12:00] VITALS: BP 154/56; PULSE 68; RESP 18; TEMP 36.8; O2SAT 92
[2023-02-02 13:48] VITALS: BMI 26.4
--- NOTE | 2023-02-02 15:19 | DIET.NUTRFU ---
Based on nutritional hx and current status she triggers for severe PCM, provider aware. Spoke to family on food preferences and supplements, to increase calorie/protein intake will order chocolate ensure with meals and authorize chocolate ice cream at request even though on a cardiac diet
[2023-02-02 16:00] VITALS: BP 153/71; PULSE 70; PULSE 73; RESP 18; TEMP 36.8; O2SAT 91
[2023-02-02 20:00] VITALS: BP 141/75; PULSE 76; PULSE 80; RESP 18; TEMP 37.1; O2SAT 92
--- NOTE | 2023-02-02 21:28 | EXP.PN ---
Subjective *Date: 02/02/23 *Time: 21:28 Interval history: No acute events overnight. Exam Data for Last 24 hours Vital signs and Labs for Last 24 Hours: Temp Pulse Resp BP Pulse Ox O2 Del Method O2 Flow Rate 98.7 F 76 18 141/75 H 92 L Room Air 2 02/02/23 20:00 02/02/23 20:00 02/02/23 20:00 02/02/23 20:00 02/02/23 20:00 02/02/23 20:00 02/01/23 18:18 I & O for Last 24 hours: Intake & Output 01/30/23 01/31/23 02/01/23 02/02/23 23:59 23:59 23:59 23:59 Intake Total 360 / 360 Output Total 550 / 550 Balance -190 / -190 Weight 62.397 kg 65.034 kg Microbiology Reports for the Last 24 Hours: Microbiology 02/01/23 13:30 Urine,Clean Catch Urine Culture - Preliminary NO GROWTH AFTER 24 HOURS Constitutional Constitutional: no acute distress *Routine HEENT Exam Head: Present normocephalic Eye: Present EOMI and PERRL ENT: Present mucous membranes moist *Routine Neck Exam Neck: Present supple; Absent lymphadenopathy *Routine Respiratory Exam Respiratory: Present CTA bilaterally *Routine Cardiovascular Exam Cardiovascular: Present RRR *Routine Abdominal Exam Abdominal: Present soft and normoactive bowel sounds; Absent tenderness *Routine Extremities Exam Extremities: Absent cyanosis, clubbing or edema *Routine Skin Exam Skin: Present warm; Absent rash *Routine Neurological Exam Neurological: Present alert and oriented X3 Assessment and Plan *Assessment and plan (1) Generalized weakness: Status: Acute Category: Medical Code(s): R53.1 - Weakness (2) Left ankle pain: Status: Acute Category: Medical Code(s): M25.572 - Pain in left ankle and joints of left foot (3) HTN (hypertension): Status: Acute Category: Medical Code(s): I10 - Essential (primary) hypertension (4) HLD (hyperlipidemia): Status: Acute Category: Medical Code(s): E78.5 - Hyperlipidemia, unspecified Plan Mrs. Mendoza is an 87 year old woman with a past medical history of dementia who presented to the ED with her because of 1 month of generalized weakness. She also complains of pain when she bears weight on her left leg after twisting her ankle a few days prior to admission. XR of the left ankle did not show any acute fracture or dislocation. XR of the hip revealed bilateral hip avascular necrosis for which Orthopedic Surgery recommended nonoperative management. She was admitted as the patient could not safely discharge home. PT/OT/CM consults were ordered. The patient will be able to go home tomorrow and family will be able to take care of her in rotation. #generalized weakness #acute left ankle pain #avascular necrosis of bilateral femoral heads #severe osteopenia
[2023-02-03] VITALS (10 sets, daily range): BP systolic 111–160; BP diastolic 56–76; PULSE 65–100; RESP 16–24; TEMP 36.3–36.7; O2SAT 91–100; BMI 25.2
--- NOTE | 2023-02-03 13:53 | XR_ITS ---
PROCEDURE INFORMATION: Exam: XR Chest Exam date and time: 02/03/2023 2:49 PM Age: 87 years old Clinical indication: Wheezing; Additional info: Incresed wheezing TECHNIQUE: Imaging protocol: Radiologic exam of the chest. Views: 1 view. COMPARISON: CR XR CHEST PORTABLE 02/01/2023 1:31 PM FINDINGS: Lungs: Hazy airspace opacities in right lower lobe favored to represent atelectasis. Pleural spaces: Increase in size of right pleural effusion. Heart/Mediastinum: Cardiomegaly noted. Bones/joints: Unremarkable. IMPRESSION: Increase in size of right pleural effusion.
--- NOTE | 2023-02-03 13:57 | PC.NURSE ---
X2 ASSIST TO CHAIR. NOTED PATIENT TO HAVE WHEEZING. NOTIFIED MD, ORDER FOR XOPENEX AND CHEST XRAY AT THIS TIME
--- NOTE | 2023-02-03 14:21 | CT_ITS ---
PROCEDURE INFORMATION: Exam: CT Head Without Contrast Exam date and time: 02/03/2023 2:50 PM Age: 87 years old Clinical indication: Altered mental status/memory loss and other: Facial droop; Additional info: Facial droop, change in menal status TECHNIQUE: Imaging protocol: Computed tomography of the head without contrast. Radiation optimization: All CT scans at this facility use at least one of these dose optimization techniques: automated exposure control; mA and/or kV adjustment per patient size (includes targeted exams where dose is matched to clinical indication); or iterative reconstruction. REPORTING DATA: Count of CT and Cardiac NM exams in prior 12 months: This patient has received 3 known CTs and 0 known cardiac nuclear medicine studies in the 12 months prior to the current study. COMPARISON: CT HEAD/BRAIN WO CON 12/20/2022 10:02 AM FINDINGS: Brain: There is no evidence of acute intracranial hemorrhage, extra-axial collection or locoregional mass effect. There are patchy and coalescent hypodensities in the periventricular and subcortical white matter. The appearance is nonspecific, but most likely represents chronic small vessel disease in a person of this age Cerebral ventricles: There is disproportionate prominence of the lateral and third ventricles relative to sulci, prominence of Sylvian fissures, and crowding of the sulci in vertex. In appropriate clinical setting, these findings can be seen in normal pressure hydrocephalus. Pituitary gland and sella: Sellar/parasellar structures, craniocervical junction and orbits are unremarkable Paranasal sinuses: Visualized sinuses are unremarkable. No fluid levels. Mastoid air cells: Visualized mastoid air cells are well aerated. Bones/joints: No calvarial fracture Soft tissues: Unremarkable. IMPRESSION: 1. No acute intracranial abnormality. If focal neurological symptoms persist brain MRI can be obtained for better evaluation 2. There is disproportionate prominence of the lateral and third ventricles relative to sulci, prominence of Sylvian fissures, and crowding of the sulci in vertex. In appropriate clinical setting, these findings can be seen in normal pressure hydrocephalus.
--- NOTE | 2023-02-03 14:25 | PC.NURSE ---
NOTED SOME DROOP TO R SIDE OF PATIENT FACE. PATIENT STILL ABLE TO MOVE EXTREMITIES ANSWERING QUESTIONS APPROPRIATELY. MD NOTIFIED AND CT ORDERED
--- NOTE | 2023-02-03 14:27 | PC.NURSE ---
Courtesy tech round: pt is up to chair with family at bS. the call light is within reach.
[2023-02-03 14:57] LABS: Anion Gap 7.4 mEq/L (5-15); Blood Urea Nitrogen 14 mg/dl (7-17); Calcium 8.7 mg/dl (8.4-10.2); Carbon Dioxide 34 mmol/L (22.0-30.0); Chloride 102 mmol/L (98-107); Creatinine Clearance Estimated 40 mL/min (50-200); Estimated Glomerular Filt Rate 80 ml/min (>60); GFR (African American) 96 ML/MIN (>60); Glucose 106 mg/dl (74-100); Potassium 4.4 mmoL/L (3.5-5.1); Sodium 139 mmol/L (136-145)
[2023-02-03 15:12] LABS: Troponin I < 0.01 ng/ml (0.00-0.034)
--- NOTE | 2023-02-03 16:08 | EXP.ACUTE.PN ---
Subjective *Date: 02/03/23 *Time: 16:08 Interval history: Update from the last 24 hours: Echo with EF of 50-60 %, mild MR, mild AR, mild TR Subjective: -Patient remains confused -Appears more lethargic today according to family -Noted a facial droop -CT head stat without contrast done which did not show any acute bleed -She is not having much of any oral diet as she is not liking the food here at the hospital -No fevers and remains afebrile Medical Exam Vital signs and Labs for Last 24 Hours: Vital Signs Temp Pulse Pulse Resp BP Pulse Ox O2 Del Method 02/03/23 12:00 70 02/03/23 15:03 97.6 F 66 18 150/76 H 100 Nasal Cannula 02/03/23 14:16 65 02/03/23 14:16 65 02/03/23 14:16 95 Nasal Cannula 02/03/23 13:00 Nasal Cannula 02/03/23 11:19 97.7 F 74 18 148/66 H 99 Nasal Cannula 02/03/23 08:00 80 02/03/23 09:00 Nasal Cannula 02/03/23 08:00 Nasal Cannula 02/03/23 11:00 Nasal Cannula 02/03/23 08:00 97.9 F 75 16 156/76 H 93 L Nasal Cannula 02/03/23 04:00 70 02/03/23 04:00 98.1 F 82 24 160/57 H 91 L Nasal Cannula 02/03/23 06:56 Room Air 02/03/23 05:00 Room Air 02/03/23 03:00 Room Air 02/03/23 00:00 70 02/03/23 01:00 Room Air 02/02/23 20:00 80 02/03/23 00:00 97.9 F 100 H 18 111/60 94 L Room Air 02/02/23 21:00 Room Air 02/02/23 23:00 Room Air 02/02/23 20:00 Room Air 02/02/23 20:00 98.7 F 76 18 141/75 H 92 L Room Air 02/02/23 18:12 Room Air 02/02/23 17:00 Room Air O2 Flow Rate 02/03/23 12:00 02/03/23 15:03 2 02/03/23 14:16 02/03/23 14:16 02/03/23 14:16 2 02/03/23 13:00 2 02/03/23 11:19 2 02/03/23 08:00 02/03/23 09:00 2 02/03/23 08:00 2 02/03/23 11:00 02/03/23 08:00 2 02/03/23 04:00 02/03/23 04:00 2 02/03/23 06:56 02/03/23 05:00 02/03/23 03:00 02/03/23 00:00 02/03/23 01:00 02/02/23 20:00 02/03/23 00:00 02/02/23 21:00 02/02/23 23:00 02/02/23 20:00 02/02/23 20:00 02/02/23 18:12 02/02/23 17:00 Intake and Output 02/03/23 02/03/23 02/03/23 07:59 15:59 23:59 Output Total 200 / 950 750 / 950 Balance -200 / -950 -750 / -950 Output: Output, Urine Amount 200 / 950 750 / 950 Other: Weight 62.188 kg Patient Weight 02/03/23 23:59 Weight 62.188 kg Laboratory Results - last 24 hr 02/03/23 14:40: Sodium 139, Potassium 4.4, Chloride 102, Carbon Dioxide 34 H, Anion Gap 7.4, BUN 14, Creatinine 0.70 D, Estimated Creat Clear 40, Estimated GFR 80, Est GFR ( Amer) 96 D, Glucose 106 H, Calcium 8.7, Troponin I < 0.01 I & O for Labs for Last 24 Hours: Intake & Output 01/31/23 02/01/23 02/02/23 02/03/23 23:59 23:59 23:59 23:59 Intake Total 360 / 360 Output Total 550 / 550 950 / 950 Balance -190 / -190 -950 / -950 Weight 62.397 kg 65.034 kg 62.188 kg Microbiology Reports for the Last 24 Hours: Microbiology 02/01/23 13:30 Urine,Clean Catch Urine Culture - Final NO GROWTH AFTER 48 HOURS Head: Present atraumatic and normocephalic ENT: Present mucous membranes dry Respiratory: Present diminished air movement Cardiac: Present Reg Rate and Rhythm GI: Present soft Extremities: Present edema Comment:: Confused, not following commands, opens her eyes. Mild facial droop to the right noted. Assessment and Plan *Assessment and plan (1) Stroke-like symptom: Status: Acute Category: Medical Code(s): R29.90 - Unspecified symptoms and signs involving the nervous system (2) Generalized weakness: Status: Acute Category: Medical Code(s): R53.1 - Weakness (3) Venous stasis: Status: Acute Category: Medical Code(s): I87.8 - Other specified disorders of veins (4) Left ankle sprain: Status: Acute Category: Medical Code(s): S93.402
--- NOTE | 2023-02-03 18:44 | PC.NURSE ---
patient was noted to be drowsy at beginning of shift. this did cause a lot of worry to family. however, patient was easily arousable, and did well in wheelchair/ recliner. has been incontinent of stool and urine. patient requires a heavy assist to transfer. family is noted to be concerned about how they will care for her at home. wheezing has improved since breathing treatment.
[2023-02-04] VITALS: BP 97/65; PULSE 64; PULSE 70; RESP 18; TEMP 36.7; O2SAT 93
[2023-02-04 04:00] VITALS: BP 136/48; PULSE 60; PULSE 79; RESP 18; TEMP 36.8; O2SAT 99; BMI 25.1
--- NOTE | 2023-02-04 05:40 | PC.NURSE ---
NO ACUTE CHANGES THIS SHIFT. PT HAS RESTED WELL. PT HAS BEEN EASILY AROUSABLE WHEN DOING ROUNDS AND VITALS. PLEASENTLY CONFUSED. REMAINS A-FIB ON TELE. VSS.
[2023-02-04 07:28] VITALS: BP 146/62; PULSE 72; RESP 20; TEMP 36.6; O2SAT 93
[2023-02-04 08:00] VITALS: PULSE 75
[2023-02-04 11:31] VITALS: BP 143/70; PULSE 70; RESP 20; TEMP 36.7; O2SAT 94
--- NOTE | 2023-02-04 11:37 | EXP.PHA.PN ---
Subjective *Date: 02/04/23 *Time: 11:37 Medical Exam Vital signs and Labs for Last 24 Hours: Vital Signs Temp Pulse Pulse Resp BP Pulse Ox O2 Del Method 02/04/23 11:31 98.0 F 70 20 143/70 H 94 L Room Air 02/04/23 09:00 Nasal Cannula 02/04/23 08:00 Nasal Cannula 02/04/23 08:00 75 02/04/23 07:28 97.8 F 72 20 146/62 H 93 L Nasal Cannula 02/04/23 06:54 Room Air 02/04/23 04:00 60 02/04/23 05:00 Room Air 02/04/23 03:00 Room Air 02/04/23 04:00 98.2 F 79 18 136/48 L 99 Nasal Cannula 02/04/23 01:00 Room Air 02/04/23 00:00 98.1 F 64 18 97/65 L 93 L Nasal Cannula 02/04/23 00:00 70 02/03/23 23:00 Room Air 02/03/23 21:00 Room Air 02/03/23 20:00 Room Air 02/03/23 20:00 80 02/03/23 19:38 97.3 F L 80 17 137/56 L 100 Nasal Cannula 02/03/23 18:46 Nasal Cannula 02/03/23 16:00 66 02/03/23 17:00 Nasal Cannula 02/03/23 15:00 Nasal Cannula 02/03/23 12:00 70 02/03/23 15:03 97.6 F 66 18 150/76 H 100 Nasal Cannula 02/03/23 14:16 65 02/03/23 14:16 65 02/03/23 14:16 95 Nasal Cannula 02/03/23 13:00 Nasal Cannula O2 Flow Rate 02/04/23 11:31 02/04/23 09:00 2 02/04/23 08:00 2 02/04/23 08:00 02/04/23 07:28 2 02/04/23 06:54 02/04/23 04:00 02/04/23 05:00 02/04/23 03:00 02/04/23 04:00 2 02/04/23 01:00 02/04/23 00:00 02/04/23 00:00 02/03/23 23:00 02/03/23 21:00 02/03/23 20:00 02/03/23 20:00 02/03/23 19:38 02/03/23 18:46 2 02/03/23 16:00 02/03/23 17:00 2 02/03/23 15:00 2 02/03/23 12:00 02/03/23 15:03 2 02/03/23 14:16 02/03/23 14:16 02/03/23 14:16 2 02/03/23 13:00 2 Intake and Output 02/03/23 02/04/23 02/04/23 23:59 07:59 15:59 Intake Total 170 / 170 Output Total 200 / 1150 600 / 600 Balance -30 / -980 -600 / -600 Intake: Intake, Oral Amount 120 / 120 Intake, Total IV Amount 50 / 50 Ceftriaxone 1 gm 1 gm In 0.9 % 50 / 50 Sodium Chloride 50 ml @ 100 mls /hr IV 0900 [facility] Rx#:[id number] Output: Output, Urine Amount 200 / 1150 600 / 600 Other: Number of Unmeasured Voids 1 Number of Bowel Movements 1 1 Weight 61.915 kg Patient Weight 02/04/23 23:59 Weight 61.915 kg Laboratory Results - last 24 hr 02/03/23 14:40: Sodium 139, Potassium 4.4, Chloride 102, Carbon Dioxide 34 H, Anion Gap 7.4, BUN 14, Creatinine 0.70 D, Estimated Creat Clear 40, Estimated GFR 80, Est GFR ( Amer) 96 D, Glucose 106 H, Calcium 8.7, Troponin I < 0.01 I & O for Labs for Last 24 Hours: Intake & Output 02/01/23 02/02/23 02/03/23 02/04/23 23:59 23:59 23:59 23:59 Intake Total 360 / 360 170 / 170 Output Total 550 / 550 1150 / 1150 600 / 600 Balance -190 / -190 -980 / -980 -600 / -600 Weight 62.397 kg 65.034 kg 62.188 kg 61.915 kg Microbiology Reports for the Last 24 Hours: Microbiology 02/01/23 13:30 Urine,Clean Catch Urine Culture - Final NO GROWTH AFTER 48 HOURS The patient's infection will respond to the chosen ABx?: Yes Is the patient receiving the right drug, dose, and route?: Yes Could a more targeted ABx be ordered?: No (NO GROWTH IN URINE , NORMAL JAVON IN SPUTUM, WBC WNL, AFEBRILE.)
--- NOTE | 2023-02-04 12:02 | EXP.DC.SUM ---
General Admission date:: 02/03/23 Discharge date: 02/04/23 HPI HPI HPI: Mrs. Mendoza is an 87 year old woman with a past medical history of hypertension and hyperlipidemia who presented to the ED with her because of 1 month of generalized weakness. Weakness has been progressive and today she was unable to get out of bed on her own. She lives with her who is does not believe he can adquately take care of her at home. She was recently diagnosed with a UTI for which she took 5 days of Bactrim. She denies fever and dysuria. She denies cough, shortness of breath, chest pain, abdominal pain and diarrhea. She believes she twisted her left ankle a few days ago and states that it hurts when she bears weight on it. Hospital Course Hospital Course Hospital Course: Mrs. Mendoza is an 87 year old woman with a past medical history of dementia who presented to the ED with her because of 1 month of generalized weakness. She also complains of pain when she bears weight on her left leg after twisting her ankle a few days prior to admission. XR of the left ankle did not show any acute fracture or dislocation. XR of the hip revealed bilateral hip avascular necrosis for which Orthopedic Surgery recommended nonoperative management. She was admitted as the patient could not safely discharge home. Patient's lethargy improved with IV fluid hydration. Even though SNF was recommended due to her insurance and affordability factors patient's family son and refused this. Patient will be going home with family who is going to help her out with her ADLs and to get outpatient physical therapy through [facility]. #Stroke like symptoms, resolved. Head CT was negative for any acute intracranial process #generalized weakness, resolved after IV fluid hydration #acute left ankle pain, persisting could be from ankle sprain. #avascular necrosis of bilateral femoral heads. Ortho suggested no surgical intervention #severe osteopenia -CT head stat ordered and reviewed. Negative for any acute intracranial process or bleed -Discussed with family regarding SNF placement but due to financials that is not affordable -Discharged on 3 more days of cefpodoxime. -For outpatient physical therapy through [facility]. Exam Data for Last 24 hours Vital signs and Labs for Last 24 Hours: Temp Pulse Resp BP Pulse Ox O2 Del Method O2 Flow Rate 98.0 F 70 20 143/70 H 94 L Room Air 2 02/04/23 11:31 02/04/23 11:02/04/23 11:02/04/23 11:02/04/23 11:02/04/23 11:02/04/23 11:00 Laboratory Results - last 24 hr 02/03/23 14:40: Sodium 139, Potassium 4.4, Chloride 102, Carbon Dioxide 34 H, Anion Gap 7.4, BUN 14, Creatinine 0.70 D, Estimated Creat Clear 40, Estimated GFR 80, Est GFR ( Amer) 96 D, Glucose 106 H, Calcium 8.7, Troponin I < 0.01 I & O for Last 24 hours: Intake & Output 02/01/23 02/02/23 02/03/23 02/04/23 23:59 23:59 23:59 23:59 Intake Total 360 / 360 170 / 170 Output Total 550 / 550 1150 / 1150 600 / 600 Balance -190 / -190 -980 / -980 -600 / -600 Weight 62.397 kg 65.034 kg 62.188 kg 61.915 kg Microbiology Reports for the Last 24 Hours: Microbiology 02/01/23 13:30 Urine,Clean Catch Urine Culture - Final NO GROWTH AFTER 48 HOURS Additional findings Additional findings: General: She is more communicative today. Follows commands. Answering some questions Head: Present atraumatic and normocephalic ENT: Present mucous membranes moist Respiratory: Present diminished air movement Cardiac: Present Reg Rate and Rhythm GI: Present soft Extremities: Present edema Neuro : Left confused, alert and awake, answering questions, following commands, able to take p.o. diet and medicines. Results Data Completed and Pending Labs on day of discharge: Labs from last 24 hours 02/03/23 14:40 Sodium 139 Potassium 4.4 Chloride 102 Carbon Dioxide 34 H Anion Ga
--- NOTE | 2023-02-05 13:36 | CARE MANAGER ---
Spoke with son for post-discharge phone interview, no issues noted.
== END 2023-02-04 14:05 | disposition home or self-care (01) | DRG 641 ==
LOC: ER 16:00 → 2ND 17:17
PROVIDERS: Emergency Medicine; Internal Medicine; Admitting Provider Internal Medicine; Emergency Provider Emergency Medicine; Visit Provider Internal Medicine
DX: E86.0 Dehydration; M87.9 Osteonecrosis, unspecified; I10 Essential (primary) hypertension; M25.572 Pain in left ankle and joints of left foot; E78.5 Hyperlipidemia, unspecified; I87.8 Other specified disorders of veins; S93.402A Sprain of unspecified ligament of left ankle, initial encounter; I65.23 Occlusion and stenosis of bilateral carotid arteries; Z79.01 Long term (current) use of anticoagulants; I50.9 Heart failure, unspecified; Z79.899 Other long term (current) drug therapy; I48.91 Unspecified atrial fibrillation; F03.90 Unspecified dementia, unspecified severity, without behavioral disturbance, psychotic disturbance, mood disturbance, and anxiety; I11.0 Hypertensive heart disease with heart failure; I27.20 Pulmonary hypertension, unspecified; R62.7 Adult failure to thrive; Z68.25 Body mass index [BMI] 25.0-25.9, adult
CPT/HCPCS: 36415; 70450; 71045; 73502; 73552; 73620; 73630; 80048; 80053; 81001; 83880; 84484; 85025; 87086; 93005; 93306; 94640; 97162; 97165; 97530; 99285; G0378; J0456; J0696

== ENCOUNTER 2023-03-20 11:10 | Emergency (ER) | payer MEDICARE, BC, SELFPAY ==
[2023-03-20 12:05] VITALS: BP 124/40; PULSE 60; RESP 18; TEMP 36.6; O2SAT 99; BMI 22.3
--- NOTE | 2023-03-20 12:40 | PC.NURSE ---
dr. tomlin at [facility]
--- NOTE | 2023-03-20 12:52 | HMH.EDGENADL ---
Discharge Plan Disposition Patient Disposition: Home, Self-Care Prescriptions Prescriptions: No Action pantoprazole 40 mg tablet,delayed release (DR/EC) 40 mg PO BID gabapentin 100 mg capsule 100 mg PO BID Patient Comments: TAKE 1 CAPSULE BY MOUTH TWICE DAILY TO IMPROVE HAND SYMPTOMS. atenolol 50 mg tablet 50 mg PO DAILY Patient Comments: TAKE 1 TABLET BY MOUTH ONCE DAILY Eliquis 5 mg tablet 5 mg PO BID tramadol 50 mg tablet 50 mg PO BID oxycodone 5 mg tablet 5 mg PO HS furosemide 40 mg tablet 40 mg PO DAILY Hold Instructions: Resume on 02/11/23. Once seen and cleared by primary care Patient Comments: TAKE 1 TABLET BY MOUTH ONCE DAILY NEEDED atorvastatin 20 mg tablet 20 mg PO DAILY clopidogrel 75 mg tablet 75 mg PO DAILY quetiapine 25 mg Tablet 25 mg PO HS diclofenac sodium 1 % gel See Rx Instructions .ROUTE .COMPLEX PRN (Reason: Pain) Patient Comments: APPLY 2-4 GRAMS OF GEL TOPICALLY TO ARTHRITIC AREA 2-3 TIMES DAILY NEEDED Rx Instructions: use 2-4g topically 2-3 times daily Referrals Follow up/Referrals: Manuel Lundberg [Primary Care Provider] - See instructions Activity Restrictions/Add. Instructions Additional Instructions/Restrictions: Return with any other concerns. Clinical Impressions Clinical Impression: Bilateral hearing loss due to cerumen impaction Instructions Patient Instructions: DI for Cerumen Impaction Discharge ED Provider: Pascual Melton General Adult HPI General Chief complaint: Ear Stated complaint: ear stopped up and pain Time Seen by Provider: 03/20/23 12:40 Mode of Arrival: Wheelchair Source of Information: Patient Limitations: [place]AR[place], dementia Description of Symptoms (Recalled from ER Triage Doc. by RN): Pt family reports wanting to get pts L ear cleaned out, states they think its clogged up for approx 2 weeks. States they have tried to clean it out at home with no success. History of Present Illness HPI narrative: Patient is an 87-year-old female with a history of dementia who normally can hear and interact normally brought in by her family members for cerumen impaction stating that she has been having more difficult time hearing recently believe this is the cause they would like her ears cleaned out. No other complaints. Related Data Home Medications Medication Instructions Recorded Confirmed apixaban 5 mg tablet (Eliquis) 5 mg PO BID Atrial fib 05/17/22 03/07/23 atenolol 50 mg tablet 50 mg PO DAILY heart rate 05/17/22 03/07/23 gabapentin 100 mg capsule 100 mg PO BID neuropathy 05/17/22 03/07/23 pantoprazole 40 mg tablet,delayed 40 mg PO BID acid reflux 05/17/22 03/07/23 release atorvastatin 20 mg tablet 20 mg PO DAILY Cholesterol 07/12/22 03/07/23 clopidogrel 75 mg tablet 75 mg PO DAILY Blood thinner 07/12/22 03/07/23 furosemide 40 mg tablet 40 mg PO DAILY Fluid 07/12/22 03/07/23 oxycodone 5 mg tablet 5 mg PO HS Pain 08/28/22 03/07/23 tramadol 50 mg tablet 50 mg PO BID Pain 08/28/22 03/07/23 quetiapine 25 mg tablet 25 mg PO HS Insomnia/agitation 02/01/23 03/07/23 diclofenac sodium 1 % topical gel See Rx Instructions .Route 02/02/23 03/07/23 .COMPLEX PRN Pain Allergies Allergy/AdvReac Type Severity Reaction Status Date / Time No Known Allergies Allergy Verified 02/26/23 11:26 [facility] Disclaimer: The information contained in this section may have been updated after the patient was seen, as this information can be updated by other users. Medical History (Updated 03/20/23 @ 12:43 by Pascual Melton MD) Abnormal electrocardiogram [ECG] [EKG] Abnormal electrocardiogram [ECG] [EKG] Afib Atrial fibrillation Atypical angina Bilateral carotid artery stenosis Bilateral carotid bruits Bright red rectal bleeding CAD (coronary atherosclerotic disease) CHF (congestive heart failure) CHF exacerbation Contusion of forehead Current use of chcf ant
--- NOTE | 2023-03-20 13:03 | PC.NURSE ---
irrigation to angelita ears per Dr. Melton request using the elephant ear wash device with baby soap and warm water. large clump of wax irrigated from both ears
[2023-03-20 13:13] VITALS: BP 141/73; PULSE 70; RESP 20; TEMP 36.6; O2SAT 96
== END 2023-03-20 13:20 | disposition home or self-care (01) ==
PROVIDERS: Emergency Provider Student in an Organized Health Care Education/Training Program; PCP Family Medicine
DX: H61.23 Impacted cerumen, bilateral (principal); F03.90 Unspecified dementia, unspecified severity, without behavioral disturbance, psychotic disturbance, mood disturbance, and anxiety; I48.91 Unspecified atrial fibrillation; I25.118 Atherosclerotic heart disease of native coronary artery with other forms of angina pectoris; I65.23 Occlusion and stenosis of bilateral carotid arteries; I50.9 Heart failure, unspecified; I27.20 Pulmonary hypertension, unspecified
CPT/HCPCS: 99282

== ENCOUNTER 2023-04-26 15:34 | Emergency (ER) | payer MEDICARE, BC, SELFPAY ==
[2023-04-26 15:36] VITALS: BP 104/47; PULSE 74; RESP 17; TEMP 36.8; O2SAT 95; BMI 24.4
[2023-04-26 16:00] VITALS: BP 110/36; PULSE 66; O2SAT 91
--- NOTE | 2023-04-26 16:04 | PC.NURSE ---
Dr. vides at [facility] for pt eval
[2023-04-26 16:14] VITALS: BMI 24.4
--- NOTE | 2023-04-26 16:15 | XR_ITS ---
FINAL REPORT CLINICAL HISTORY: foot wound on medial side of foot COMPARISON: 02/01/2023 FINDINGS: RIGHT FOOT 3 views of the right foot were obtained. There is no acute fracture or dislocation. Bones are osteopenic. There are mild degenerative changes. Vascular calcifications are again seen. Visualized joint spaces are normally aligned. Soft tissues are unremarkable. IMPRESSION: No acute bony abnormality. Reviewed, Interpreted and Dictated by Jonathan Elam III, MD Transcribed by Rebeca Hernandez Authenticated and [facility]
--- NOTE | 2023-04-26 16:24 | HMH.EDGENADL ---
Discharge Plan Disposition Patient Disposition: Home, Self-Care Chief Complaint: Skin/Abscess/Foreign Body Prescriptions Prescriptions: No Action pantoprazole 40 mg tablet,delayed release (DR/EC) 40 mg PO BID gabapentin 100 mg capsule 100 mg PO BID Patient Comments: TAKE 1 CAPSULE BY MOUTH TWICE DAILY TO IMPROVE HAND SYMPTOMS. atenolol 50 mg tablet 50 mg PO DAILY Patient Comments: TAKE 1 TABLET BY MOUTH ONCE DAILY Eliquis 5 mg tablet 5 mg PO BID tramadol 50 mg tablet 50 mg PO BID oxycodone 5 mg tablet 5 mg PO HS furosemide 40 mg tablet 40 mg PO DAILY Hold Instructions: Resume on 02/11/23. Once seen and cleared by primary care Patient Comments: TAKE 1 TABLET BY MOUTH ONCE DAILY NEEDED atorvastatin 20 mg tablet 20 mg PO DAILY clopidogrel 75 mg tablet 75 mg PO DAILY quetiapine 25 mg Tablet 25 mg PO HS diclofenac sodium 1 % gel See Rx Instructions .ROUTE .COMPLEX PRN (Reason: Pain) Patient Comments: APPLY 2-4 GRAMS OF GEL TOPICALLY TO ARTHRITIC AREA 2-3 TIMES DAILY NEEDED Rx Instructions: use 2-4g topically 2-3 times daily Referrals Follow up/Referrals: Manuel Lundberg [Primary Care Provider] - See instructions Activity Restrictions/Add. Instructions Additional Instructions/Restrictions: Call your family doctor to establish care for this visit to the emergency department and schedule follow-up within 48 hours to ensure improvement. If you have any worsening of your condition or any other concerning signs or symptoms, return to the emergency department or your primary care doctor for further evaluation. Follow-up with wound care for further dressing of wounds. Clinical Impressions Clinical Impression: Pressure ulcer Instructions Patient Instructions: DI for Skin Abscess Discharge ED Provider: Ollie Bills General Adult HPI General Chief complaint: Skin/Abscess/Foreign Body Stated complaint: pressure sore RT hip Time Seen by Provider: 04/26/23 15:40 History of Present Illness HPI narrative: 87-year-old female history of dementia, hypertension, hyperlipidemia, chronic debility, A-fib on Eliquis presenting with concern for wound check. Patient has been seen by wound care over a period of months. Has wound on bilateral hips, 1 on her right heel. None of them are painful, but wound on right buttock, reportedly, wound care was worried about infection. She was sent to the ER for further evaluation. No fevers, chills, nausea or vomiting, acute on chronic decline, changes from baseline, or any other concerns Related Data Home Medications Medication Instructions Recorded Confirmed apixaban 5 mg tablet (Eliquis) 5 mg PO BID Atrial fib 05/17/22 04/26/23 atenolol 50 mg tablet 50 mg PO DAILY heart rate 05/17/22 04/26/23 gabapentin 100 mg capsule 100 mg PO BID neuropathy 05/17/22 04/26/23 pantoprazole 40 mg tablet,delayed 40 mg PO BID acid reflux 05/17/22 04/26/23 release atorvastatin 20 mg tablet 20 mg PO DAILY Cholesterol 07/12/22 04/26/23 clopidogrel 75 mg tablet 75 mg PO DAILY Blood thinner 07/12/22 04/26/23 furosemide 40 mg tablet 40 mg PO DAILY Fluid 07/12/22 04/26/23 oxycodone 5 mg tablet 5 mg PO HS Pain 08/28/22 04/26/23 tramadol 50 mg tablet 50 mg PO BID Pain 08/28/22 04/26/23 quetiapine 25 mg tablet 25 mg PO HS Insomnia/agitation 02/01/23 04/26/23 diclofenac sodium 1 % topical gel See Rx Instructions .Route 02/02/23 04/26/23 .COMPLEX PRN Pain Allergies Allergy/AdvReac Type Severity Reaction Status Date / Time No Known Allergies Allergy Verified 02/26/23 11:26 [facility] Disclaimer: The information contained in this section may have been updated after the patient was seen, as this information can be updated by other users. Medical History (Updated 04/26/23 @ 17:49 by Ollie Bills MD) Abnormal electrocardiogram [ECG] [EKG] Abnormal electrocardiogram [ECG] [EKG] Afib Atrial
[2023-04-26 16:30] VITALS: BP 109/37; PULSE 63; O2SAT 90
--- NOTE | 2023-04-26 16:34 | XR_ITS ---
PROCEDURE INFORMATION: Exam: XR Right Calcaneus Exam date and time: 04/26/2023 4:56 PM Age: 87 years old Clinical indication: Other: Wound; Additional info: Medial R calc blister and pressure sore TECHNIQUE: Imaging protocol: Radiologic exam of the right calcaneus. Views: 2 or more views. COMPARISON: CR XR FOOT RT MIN 3V 04/26/2023 4:37 PM FINDINGS: Bones/joints: Severe generalized osteopenia. Advanced degenerative changes of the partially included midfoot. Small to moderate-sized heel spurs. No fracture or other acute bony abnormality. Soft tissues: Normal. Other findings: Vascular calcifications suggesting diabetic vasculopathy. IMPRESSION: No acute bony abnormality.
--- NOTE | 2023-04-26 16:41 | PC.NURSE ---
blood sent to lab xray at for portable xray
[2023-04-26 17:01] LABS: Basophils % 0.3 % (0.1-2.0); Eosinophils # 0.2 K/mm3 (0.0-0.4); Eosinophils % 2.5 % (0.1-12.0); Hematocrit 30.6 % (37.0-47.0); Hemoglobin 9.8 g/dL (12.2-16.2); Lymphocytes # 1.4 K/mm3 (0.7-4.5); Lymphocytes % 20.2 % (10-50); Mean Corpuscular Hemoglobin 29.8 pg (27.0-31.2); Mean Corpuscular Volume 93.4 fl (81-99); Mean Platelet Volume 7.7 fl (7.4-10.4); Monocytes # 0.4 K/mm3 (0.1-1.0); Monocytes % 5.4 % (1.7-9.3); Neutrophils # 4.9 K/mm3 (1.8-7.8); Neutrophils % 71.7 % (37.0-80.0); Platelet Count 259 K/mm3 (142-424); Red Blood Count 3.28 M/mm3 (4.20-5.40); Red Cell Distribution Width 16.6 % (11.5-17.5); White Blood Count 6.9 K/mm3 (4.8-10.8)
[2023-04-26 17:02] LABS: Alanine Aminotransferase 19 U/L (12-78); Albumin Level 2.5 g/dl (3.5-5.0); Albumin/Globulin Ratio 0.8 (1.1-1.8); Alkaline Phosphatase 91 U/L (38-126); Anion Gap 3.5 mEq/L (5-15); Aspartate Amino Transferase 43 U/L (14-36); Bilirubin,Total 0.7 mg/dl (0.2-1.3); Blood Urea Nitrogen 12 mg/dl (7-17); Calcium 7.8 mg/dl (8.4-10.2); Carbon Dioxide 37 mmol/L (22.0-30.0); Chloride 101 mmol/L (98-107); Creatinine Clearance Estimated 37 mL/min (50-200); Estimated Glomerular Filt Rate 117 ml/min (>60); GFR (African American) 142 ML/MIN (>60); Globulin 3.3 g/dL (1.3-3.2); Glucose 123 mg/dl (74-100); Potassium 3.5 mmoL/L (3.5-5.1); Sodium 138 mmol/L (136-145); Total Protein,Serum 5.8 g/dl (6.3-8.2)
[2023-04-26 17:07] LABS: C-Reactive Protein 5.5 mg/L (0-4)
--- NOTE | 2023-04-26 17:18 | PC.NURSE ---
Rounded on pt. No needs voiced at this time. Visitors remain at BS.
[2023-04-26 17:53] VITALS: BP 130/57; PULSE 62; RESP 17; TEMP 36.8; O2SAT 94
--- NOTE | 2023-04-26 17:54 | PC.NURSE ---
at bedside s/w pt, spouse, and grandson
[2023-04-26 18:22] LABS: Erythrocyte Sedimentation Rate 47 mm/hr (0-30)
== END 2023-04-26 18:01 | disposition home or self-care (01) ==
PROVIDERS: Emergency Provider Emergency Medicine; PCP Family Medicine
DX: L89.319 Pressure ulcer of right buttock, unspecified stage (principal); I48.0 Paroxysmal atrial fibrillation; I65.23 Occlusion and stenosis of bilateral carotid arteries; I25.10 Atherosclerotic heart disease of native coronary artery without angina pectoris; I11.0 Hypertensive heart disease with heart failure; I50.9 Heart failure, unspecified; I27.20 Pulmonary hypertension, unspecified; E78.5 Hyperlipidemia, unspecified; F03.90 Unspecified dementia, unspecified severity, without behavioral disturbance, psychotic disturbance, mood disturbance, and anxiety; Z79.01 Long term (current) use of anticoagulants
CPT/HCPCS: 73630; 73650; 80053; 85025; 85651; 86140; 99283

== ENCOUNTER 2023-05-30 17:31 | Observation (INO) | payer MEDICARE, BC, SELFPAY ==
[2023-05-30] VITALS (16 sets, daily range): BP systolic 129–177; BP diastolic 54–94; PULSE 60–73; RESP 15–18; TEMP 36.6; O2SAT 92–97; BMI 21.6
--- NOTE | 2023-05-30 17:33 | HMH.EDGENADL ---
Discharge Plan Disposition Patient Disposition: Home, Self-Care Clinical Impressions Clinical Impression: BRBPR (bright red blood per rectum), Aspiration pneumonia, Dementia, Abdominal pain, Respiratory failure with hypoxia Discharge ED Provider: Moses Malik General Adult HPI General Chief complaint: GI Bleed Stated complaint: blood in stool Time Seen by Provider: 05/30/23 17:33 History of Present Illness HPI narrative: 87-year-old female, history of A-fib on Eliquis,, heart failure, pulmonary hypertension, coronary artery disease, diverticulosis, presents with 2 episodes of bright red blood per rectum. Per family, patient had 2 large bowel movements that were full of bright red blood. 1 last night, 1 this morning. She has had episodes of bright red blood in the past, specifically in July of this year, colonoscopy at that time showed a polyp and diverticulosis. No history of bleeding in the meantime. Patient is also had some abdominal discomfort of the last few days. Family reports that the patient has had worsening cough at home and home health was concerned for possible pneumonia. Patient has significant dementia and is unable to provide any significant history, though she is awake alert and interactive and can answer simple questions. Related Data Home Medications Medication Instructions Recorded Confirmed apixaban 5 mg tablet (Eliquis) 5 mg PO BID Atrial fib 05/17/22 04/26/23 atenolol 50 mg tablet 50 mg PO DAILY heart rate 05/17/22 04/26/23 gabapentin 100 mg capsule 100 mg PO BID neuropathy 05/17/22 04/26/23 pantoprazole 40 mg tablet,delayed 40 mg PO BID acid reflux 05/17/22 04/26/23 release atorvastatin 20 mg tablet 20 mg PO DAILY Cholesterol 07/12/22 04/26/23 clopidogrel 75 mg tablet 75 mg PO DAILY Blood thinner 07/12/22 04/26/23 furosemide 40 mg tablet 40 mg PO DAILY Fluid 07/12/22 04/26/23 oxycodone 5 mg tablet 5 mg PO HS Pain 08/28/22 04/26/23 tramadol 50 mg tablet 50 mg PO BID Pain 08/28/22 04/26/23 quetiapine 25 mg tablet 25 mg PO HS Insomnia/agitation 02/01/23 04/26/23 diclofenac sodium 1 % topical gel See Rx Instructions .Route 02/02/23 04/26/23 .COMPLEX PRN Pain Allergies Allergy/AdvReac Type Severity Reaction Status Date / Time No Known Allergies Allergy Verified 02/26/23 11:26 [facility] Disclaimer: The information contained in this section may have been updated after the patient was seen, as this information can be updated by other users. Medical History (Updated 05/30/23 @ 22:31 by Moses Malik MD) Abnormal electrocardiogram [ECG] [EKG] Abnormal electrocardiogram [ECG] [EKG] Afib Atrial fibrillation Atypical angina Bilateral carotid artery stenosis Bilateral carotid bruits Bright red rectal bleeding CAD (coronary atherosclerotic disease) CHF (congestive heart failure) CHF exacerbation Contusion of forehead Current use of [facility] anticoagulation Edema of left lower leg Elevated troponin Lower extremity edema Memory impairment Pneumonia Popliteal cyst, unruptured Pulmonary hypertension Serrated adenoma of colon Shortness of Breath Skin tear Tubular adenoma of colon Surgical History H/O: hysterectomy History of cholecystectomy History of colonoscopy Hx of hernia repair Family History Other No significant family history Social History Smoking Status: Never smoker alcohol intake: never substance use type: denies use current occupational status: retired Travel in the last 8 weeks: None ROS Obtained: Yes All systems reviewed & no additional complaints except as documented Physical Exam General General appearance: alert and in no apparent distress Head Head exam: atraumatic and normocephalic Eye Eye exam: Present normal appearance, PERRL and EOMI ENT ENT exam: Present normal oropharynx and
--- NOTE | 2023-05-30 17:56 | XR_ITS ---
PROCEDURE INFORMATION: Exam: XR Chest Exam date and time: 05/30/2023 6:02 PM Age: 87 years old Clinical indication: Cough TECHNIQUE: Imaging protocol: Radiologic exam of the chest. Views: 1 view. COMPARISON: CR XR CHEST PORTABLE 02/03/2023 2:49 PM FINDINGS: Lungs: Low lung volumes. Hazy opacification at the right lung base. Pleural spaces: Small right pleural effusion. Heart/Mediastinum: Unchanged cardiomegaly. Vasculature: Tortuous atherosclerotic thoracic aorta. Vascular stent in the region of the right innominate artery. Bones/joints: Osteopenia. Thoracic spine dextroscoliosis. IMPRESSION: 1. Small right pleural effusion. 2. Hazy opacity at the right lung base is probably due to atelectasis but cannot exclude pneumonia. 3. Unchanged cardiomegaly.
--- NOTE | 2023-05-30 18:32 | PC.NURSE ---
Rounded on patient; warm blankets provided to patient . Call light within reach of patient
[2023-05-30 18:42] LABS: Basophils % 0.2 % (0.1-2.0); Eosinophils # 0.1 K/mm3 (0.0-0.4); Eosinophils % 0.6 % (0.1-12.0); Hematocrit 31.7 % (37.0-47.0); Hemoglobin 10.2 g/dL (12.2-16.2); MANUAL DIFFERENTIAL MANUAL DIFFERENTIAL (MANUAL DIFF); Mean Corpuscular HGB Conc 32.1 g/dL (31.8-35.4); Mean Corpuscular Hemoglobin 29.9 pg (27.0-31.2); Mean Corpuscular Volume 93.3 fl (81-99); Mean Platelet Volume 8.2 fl (7.4-10.4); Monocytes # 0.5 K/mm3 (0.1-1.0); Monocytes % 4.8 % (1.7-9.3); Neutrophils # 9.8 K/mm3 (1.8-7.8); Neutrophils % 85.4 % (37.0-80.0); Platelet Count 291 K/mm3 (142-424); White Blood Count 11.4 K/mm3 (4.8-10.8)
[2023-05-30 18:45] LABS: Chloride 97 mmol/L (98-107); Potassium 3.9 mmoL/L (3.5-5.1); Sodium 138 mmol/L (136-145)
[2023-05-30 18:48] LABS: Alanine Aminotransferase 21 U/L (12-78); Albumin/Globulin Ratio 0.9 (1.1-1.8); Alkaline Phosphatase 106 U/L (38-126); Anion Gap 7.9 mEq/L (5-15); Aspartate Amino Transferase 41 U/L (14-36); Bilirubin,Total 0.7 mg/dl (0.2-1.3); Blood Urea Nitrogen 12 mg/dl (7-17); Carbon Dioxide 37 mmol/L (22.0-30.0); Creatinine Clearance Estimated 37 mL/min (50-200); Estimated Glomerular Filt Rate 80 ml/min (>60); GFR (African American) 96 ML/MIN (>60); Globulin 3.5 g/dL (1.3-3.2); Total Protein,Serum 6.5 g/dl (6.3-8.2)
[2023-05-30 18:49] LABS: Activated Partial Thrombo Time 31.6 seconds (22.8-30.6); Calcium 7.9 mg/dl (8.4-10.2); Glucose 133 mg/dl (74-100); INR 1.45 (0.9-1.1); Prothrombin Time 15.3 seconds (10.1-12.5)
[2023-05-30 19:56] LABS: Hypochromasia 1+; Lymphocytes % 9 % (10-50); Monocytes % 2 % (2-9); Neutrophils % 88 % (42-76); Platelet Estimate Normal; Total Cells Counted 100
--- NOTE | 2023-05-30 20:27 | CT_ITS ---
PROCEDURE INFORMATION: Exam: CT Abdomen And Pelvis With Contrast Exam date and time: 05/30/2023 8:43 PM Age: 87 years old Clinical indication: Abdominal pain; Additional info: Abd pain, brbpr TECHNIQUE: Imaging protocol: Computed tomography of the abdomen and pelvis with contrast. Radiation optimization: All CT scans at this facility use at least one of these dose optimization techniques: automated exposure control; mA and/or kV adjustment per patient size (includes targeted exams where dose is matched to clinical indication); or iterative reconstruction. Contrast material: ISOVUE; Contrast volume: 75 ml; Contrast route: IV; REPORTING DATA: Count of CT and Cardiac NM exams in prior 12 months: This patient has received 3 known CTs and 0 known cardiac nuclear medicine studies in the 12 months prior to the current study. COMPARISON: CR XR HIP LT 2-3V W/PELVIS 02/01/2023 1:31 PM FINDINGS: Lungs: Right lower lobe compressive atelectasis. Unchanged dense calcifications in the right lower lobe. Unchanged left lower lobe rounded atelectasis and calcified granuloma. Pleural spaces: Moderate right and small left pleural effusions. Unchanged left calcified pleural plaque. Heart: Unchanged cardiomegaly with severe biatrial enlargement. Coronary arteries: Severe coronary artery calcification. Liver: Punctate hypodense lesion in the posterior segment right hepatic lobe is too small to characterize but is unchanged and is likely a cyst. Gallbladder and bile ducts: Status post cholecystectomy. Unchanged mild extrahepatic biliary ductal dilatation which is probably physiologic. Mild pneumobilia consistent with prior sphincterotomy. Pancreas: Moderate pancreatic atrophy. No acute findings or focal pancreatic lesion. Spleen: Normal. No splenomegaly. Adrenal glands: Normal. No mass. Kidneys and ureters: Bilateral subcentimeter low-density renal lesions are too small to characterize. 1.6 cm simple cyst in the posterior left kidney. No hydronephrosis. Stomach and bowel: The distal stomach extends into a right upper quadrant abdominal wall hernia in the herniated portion of the stomach is distended and demonstrates an air-fluid level. Distal colonic diverticulosis. Moderate fecal material throughout the colon. No large or small bowel obstruction. Appendix: No evidence of appendicitis. Intraperitoneal space: Unremarkable. No free air. No significant fluid collection. Vasculature: Mild atherosclerotic disease without aneurysm. Infrarenal IVC filter in place. Lymph nodes: Unremarkable. No enlarged lymph nodes. Urinary bladder: Unremarkable as visualized. Reproductive: Status post hysterectomy. No adnexal masses. Bones/joints: Bilateral superior femoral head avascular necrosis. Moderate lumbar spine degenerative change. Severe lower thoracic spine degenerative disc disease. Grade 1 anterolisthesis of L4 over L5 secondary to facet arthropathy. Osteopenia. Soft tissues: Right upper quadrant abdominal wall hernia contains the distal stomach and a portion of the anterior aspect of the liver. Extensive muscular fatty atrophy. Large decubitus ulcer lateral to the right femoral trochanter with gas extending from the skin surface to the greater trochanter. Diffuse anasarca. Subcutaneous calcifications in the back appear consistent with dystrophic calcifications. IMPRESSION: 1. Right upper quadrant abdominal wall hernia contains the distal stomach. The herniated portion of the stomach is distended and demonstrates an air-fluid level suggesting a degree of gastric outlet obstruction. 2. Decubitus ulcer lateral to the right femoral greater trochanter with gas extending from the skin surface to the greater trochanter. No osseous changes to suggest
--- NOTE | 2023-05-30 21:15 | PC.NURSE ---
Rounded on patient; patient aspirated while taking meds. Patient desat'd to 83% RA. 3L NC applied patient's Sat is 96% at this time. MD notified.
[2023-05-30 21:31] LABS: NT Pro Brain Natriuretic Pep. 3490 pg/mL (0-450)
--- NOTE | 2023-05-30 21:57 | PC.NURSE ---
on phone with hospitalist
--- NOTE | 2023-05-30 22:03 | PC.NURSE ---
notified [facility]house worker of admission
--- NOTE | 2023-05-30 22:05 | PC.NURSE ---
Observation admission to 207 with dx of possible pneumonia, possible gi bleed to service of the hospitalist.
--- NOTE | 2023-05-30 23:07 | PC.NURSE ---
pt arrived to the floor via stretcher @22:48
--- NOTE | 2023-05-30 23:14 | EXP.HP ---
History of Present Illness *Admission Date: 05/30/23 *Reason for visit:: hypoxia *History of present illness: 87-year-old female presented to the ED for c/o bright red blood in her stool x 2 in since yesterday. PMHX A-fib on Eliquis, heart failure, pulmonary hypertension, coronary artery disease, diverticulosis. Per family, patient had 2 large bowel movements that were full of bright red blood. 1 last night, 1 this morning. Patient is also had some abdominal discomfort of the last few days. Family reports that the patient has had worsening cough at home and home health was concerned for possible pneumonia. Patient has significant dementia and is unable to provide any significant history, though she is awake alert and interactive and can answer simple questions. Her ED workup revealed stable hgb, elevated BNP, negative occult stool, and CTA of abd revealed hernia in the right upper quadrant, colonic diverticulosis, and bilateral lower lobe pneumonia. Chest Xray reveals right lung base pneumonia and cardiomegaly. The pt was started on oral Augmentin and azithromycin. She aspirated after and required 3L of oxygen. The ED physician consulted the hospitalist team for further medical management. I admitted the pt to the medical surgical floor. She arrives on 2L and will continue to wean her oxygen. Will monitor overnight for any acute bleeding and continue her oral antibiotics. [facility] Disclaimer: The information contained in this section may have been updated after the patient was seen, as this information can be updated by other users. Medical History (Updated 05/30/23 @ 23:29 by AZAEL Waller) Abnormal electrocardiogram [ECG] [EKG] Abnormal electrocardiogram [ECG] [EKG] Afib Atrial fibrillation Atypical angina Bilateral carotid artery stenosis Bilateral carotid bruits Bright red rectal bleeding CAD (coronary atherosclerotic disease) CHF (congestive heart failure) CHF exacerbation Contusion of forehead Current use of [employer] anticoagulation Edema of left lower leg Elevated troponin Lower extremity edema Memory impairment Pneumonia Popliteal cyst, unruptured Pulmonary hypertension Serrated adenoma of colon Shortness of Breath Skin tear Tubular adenoma of colon Surgical History H/O: hysterectomy History of cholecystectomy History of colonoscopy Hx of hernia repair Family History Other No significant family history Social History (Updated 05/30/23 @ 23:36 by April Barnes RN) Smoking Status: Never smoker alcohol intake: never substance use type: denies use current occupational status: retired Travel in the last 8 weeks: None Review of Systems Review of Systems Review of systems:: unable to obtain Meds Home Medications and Allergies Home Medications Medication Instructions Recorded Confirmed Type apixaban 5 mg tablet (Eliquis) 5 mg PO BID Atrial fib 05/17/22 05/31/23 History atenolol 50 mg tablet 50 mg PO DAILY heart rate 05/17/22 05/31/23 History gabapentin 100 mg capsule 100 mg PO BID neuropathy 05/17/22 05/31/23 History pantoprazole 40 mg tablet,delayed 40 mg PO BID acid reflux 05/17/22 05/31/23 History release atorvastatin 20 mg tablet 20 mg PO HS Cholesterol 07/12/22 05/31/23 History clopidogrel 75 mg tablet 75 mg PO DAILY Blood thinner 07/12/22 05/31/23 History furosemide 40 mg tablet 20 mg PO DAILY Fluid 07/12/22 05/30/23 History oxycodone 5 mg tablet 5 mg PO HS Pain 08/28/22 05/31/23 History tramadol 50 mg tablet 100 mg PO BID PRN Pain 08/28/22 05/31/23 History quetiapine 25 mg tablet 25 mg PO HS Insomnia/agitation 02/01/23 05/31/23 History clindamycin HCl 300 mg capsule 300 mg PO QID Infection 05/31/23 05/31/23 History 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
[2023-05-31 04:00] VITALS: BP 108/49; PULSE 64; RESP 16; TEMP 36.6; O2SAT 98; BMI 24.1
[2023-05-31 05:52] LABS: Basophils % 0.2 % (0.1-2.0); Eosinophils # 0.1 K/mm3 (0.0-0.4); Eosinophils % 1.4 % (0.1-12.0); Hematocrit 29.6 % (37.0-47.0); Hemoglobin 9.7 g/dL (12.2-16.2); Lymphocytes # 1.2 K/mm3 (0.7-4.5); Lymphocytes % 16.2 % (10-50); Mean Corpuscular HGB Conc 32.8 g/dL (31.8-35.4); Mean Corpuscular Hemoglobin 30.5 pg (27.0-31.2); Mean Corpuscular Volume 92.9 fl (81-99); Mean Platelet Volume 7.6 fl (7.4-10.4); Monocytes # 0.5 K/mm3 (0.1-1.0); Monocytes % 6.3 % (1.7-9.3); Neutrophils # 5.6 K/mm3 (1.8-7.8); Neutrophils % 75.8 % (37.0-80.0); Platelet Count 259 K/mm3 (142-424); Red Blood Count 3.18 M/mm3 (4.20-5.40); White Blood Count 7.4 K/mm3 (4.8-10.8)
--- NOTE | 2023-05-31 05:55 | PC.WOUNDNOTE ---
wound on left side of hip wound on bottom of right heel
[2023-05-31 06:02] LABS: Anion Gap 6.7 mEq/L (5-15); Blood Urea Nitrogen 9 mg/dl (7-17); Calcium 7.9 mg/dl (8.4-10.2); Carbon Dioxide 34 mmol/L (22.0-30.0); Chloride 98 mmol/L (98-107); Creatinine Clearance Estimated 42 mL/min (50-200); Estimated Glomerular Filt Rate 95 ml/min (>60); GFR (African American) 115 ML/MIN (>60); Glucose 87 mg/dl (74-100); Potassium 3.7 mmoL/L (3.5-5.1); Sodium 135 mmol/L (136-145)
--- NOTE | 2023-05-31 06:46 | PC.NURSE ---
Patient arrived to floor for possible GI bleed & possible PNA; VSS; AM Labs shows a decrease in Hgb; No BM's during shift. Patient has 3 wounds. Right Heel - Stage 1 covered with mepilex & heel protectors; Left hip Stage 2 with 1.5-2 of hardness surrounding the wound, covered with mepilex; Right hip Stage 2 with tunnelling - dressing is packing, covered with gauze & ABD pad with tape. Patients family states that wounds are daily dressing changes with Home Health coming into home 1x week and family doing dressing changes the rest of the time. Patient has hiatal hernia on right lower abdominal quadrant. Patient rested most of the shift. Patient has Dementia and gets many of the facts confused. Son is best resource for information. Call light in reach; bed at lowest level for safety.
--- NOTE | 2023-05-31 07:51 | HMH.PHAINT1 ---
Pharmacy Intervention Comments: Med reconciliation completed using external fill history
[2023-05-31 08:00] VITALS: BP 112/50; PULSE 68; RESP 16; TEMP 36.6; O2SAT 97; O2SAT 99
--- NOTE | 2023-05-31 09:50 | HMH.OTEV ---
OT Inpatient Evaluation Rehab OT IP Evaluation Start: 05/31/23 08:05 Freq: ONCE Status: Active [facility]: [facility] (Rec: 05/31/23 09:50 [facility] [id number]) Rehab OT IP Assessment Subjective History Pt oriented to name and birthday on arrival. Pt unaware of place. Pt demonstrates continued confusion. Pt admitted on due to possible GI bleed . Per family, patient had 2 large bowel movements that were full of bright red blood. Patient is also had some abdominal discomfort of the last few days. Family reports that the patient has had worsening cough at home and home health was concerned for possible pneumonia. Patient has significant dementia and is unable to provide any significant history, though she is awake alert and interactive and can answer simple questions. Her ED workup revealed stable hgb, elevated BNP, negative occult stool, and CTA of abd revealed hernia in the right upper quadrant, colonic diverticulosis, and bilateral lower lobe pneumonia. Patient unable to provide trustworthy information about prior level of functioning due to dementia. Pt reports she lived with her prior and required assistance with all ADLs. From chart review it appears she was receiving home health. Pt has past medical history of : Abnormal electrocardiogram [ ECG] [EKG] Abnormal electrocardiogram [ ECG] [EKG] Afib Atrial fibrillation Atypical angina Bilateral car
--- NOTE | 2023-05-31 11:07 | HMH.PTEV ---
Physical Therapy Evaluation Rehab PT IP Evaluation Start: 05/31/23 08:05 Freq: ONCE Status: Active Protocol: Document 05/31/23 11:02 PHOJOSR (Rec: 05/31/23 11:07 PHORNE [id number]) Subjective/History History History 87 yowf adm to [facility] with PNA and GIB. PMHX A-fib on Eliquis , heart failure, pulmonary hypertension, coronary artery disease, diverticulosis. She has significant dementia at baseline and is oriented to person only at this time. She also presents with significant wounds on her R heel and R post hip upon admission. Subjective Subjective Pt c/o pain with any movement of the R LE this am. Agrees to mobility assessment. New diagnosis of cancer in past 12 No months? Rehab PT IP Eval Objective Appearance Patient Behavior Confused Patient Orientation Person Difficulty following instructions mild Speech Pattern Clear Ambulation Patient Able to Ambulate No Balance Ability to Arise Unable Sitting Balance Leans or slides in chair Standing Balance Unsteady Dynamic Sitting Balance Ability Fair Dynamic Standing Balance Ability Poor Transfers Bed Transfer Ability Maximum x 1 (75% assist) Chair Transfer Ability Maximum x 1 (75% assist) Sit to Stand Bed Transfer Ability Maximum x 1 (75% assist) Sit to Stand Chair Transfer Ability Maximum x 1 (75% assist) Rehab PT IP prob,goals,plan Problems Date of Evaluation: 05/31/23 PT IP Problems Bed Mobility,Transfers Rehab Potential Rehab Potential Fair Plan PT Intervention Plan Bed Mobility,Transfers,Gait, Therapeutic Exercise PT Plan Frequency Daily Duration LOS Discharge Goals Bed Transfer Ability Moderate x 2 (50% assist) Sit to Stand Chair Transfer Ability Moderate x 2 (50% assist) Discharge Plan PT Discharge Plan pt is currently most appropriate for rehab placement once medically stable for d/c. Skilled intervention needed to decrease the chances of further debility, wounds, falls, or injury. Eval Complexity Eval Charge Codes 04697 - High Complexity
--- NOTE | 2023-05-31 11:13 | HMH.PTWOUND ---
Rehab Inpt Wound Evaluation Rehab IP Wound Evaluation Start: 05/31/23 11:07 Freq: ONCE Status: Active Protocol: Document 05/31/23 11:08 PHORELENITA (Rec: 05/31/23 11:12 PHORNE [id number]) Rehab PT Wound Assessment Subjective Subjective 87 yowf adm to [facility] with PNA and GIB. PMHX A-fib on Eliquis , heart failure, pulmonary hypertension, coronary artery disease, diverticulosis. She has significant dementia at baseline and is oriented to person only at this time. She also presents with significant wounds on her R heel and R post hip upon admission. Wound Right Medial Heel Wound Type Pressure Ulcer Is This a Chronic Wound Yes Wound Staging Unstageable Query Text:Stage I - Unbroken, red skin, no blanching. Stage II - Skin broken, superficial skin loss involving epidermis alone or also dermis. Partial loss of skin layers. Stage III - Pressure area involves epidermis, dermis and subcutaneous tissue, full thickness skin loss. Stage IV - Pressure area involves epidermis, subcutaneous tissue, bone and other supportive tissue. Full thickness skin loss with extensive destruction of underlying tissue and structures. Wound Length (cm) 5.0 Wound Width (cm) 2.0 Wound Bed Appearance Eschar Percentage of Eschar (Brown) (%) 100 Wound Margins Description Well Defined Right Posterior Hip Wound Type Pressure Ulcer Is This a Chronic Wound Yes Wound Staging Stage IV Query Text:Stage I - Unbroken, red skin, no blanching. Stage II - Skin broken, superficial skin loss involving epidermis alone or also dermis. Partial loss of skin layers. Stage III - Pressure area involves epidermis, dermis and subcutaneous tissue, full thickness skin loss. Stage IV - Pressure area involves epidermis, subcutaneous tissue, bone and other supportive tissue. Full thickness skin loss with extensive destruction of underlying tissue and structures. Wound Length (cm) 4.0 Wound Width (cm) 2.0 Wound Depth (cm) 2.0 Wound Bed Appearance Beefy Red,Yellow Percentage Granulated (%) 50
--- NOTE | 2023-05-31 11:49 | SW/DCPLANNER ---
Addendum entered by Philly Potts 06/01/23 11:07: The plan for this patient is to return home today. Patient information/order faxed to [facility] to resume home health services. Addendum entered by Philly Potts 05/31/23 14:18: I have updated Lala w/ [facility] that patient is currently admitted OBS. Original Note: I spoke w/ this patient regarding plans once medically stable for discharge. PT/OT recommended SNF level of care. Patient stated that she resides at home w/ her and is currently established w/ [facility]. Patient's and granddaughter were present in patient's room during my visit. Patient and her family prefer that patient return back home w/ home health services at time of discharge. I will continue to follow up w/ patient and family until medically stable for discharge. Pending no setbacks and consult's patient may be ready for discharge tomorrow.
--- NOTE | 2023-05-31 12:07 | EXP.SURG.CON ---
History of Present Illness *Admission Date: 05/30/23 *Reason for visit:: As per order: ct abd showed gastric outlet obstruction *History of present illness: This is an 87-year-old female with a complex past medical history who presented to the emergency department with recent cough, abdominal discomfort, and intermittent bright red blood per rectum. Forwarded from emergency department evaluation/history and physical: 87-year-old female presented to the ED for c/o bright red blood in her stool x 2 in since yesterday. PMHX A-fib on Eliquis, heart failure, pulmonary hypertension, coronary artery disease, diverticulosis. Per family, patient had 2 large bowel movements that were full of bright red blood. 1 last night, 1 this morning. Patient is also had some abdominal discomfort of the last few days. Family reports that the patient has had worsening cough at home and home health was concerned for possible pneumonia. Patient has significant dementia and is unable to provide any significant history, though she is awake alert and interactive and can answer simple questions. Her ED workup revealed stable hgb, elevated BNP, negative occult stool, and CTA of abd revealed hernia in the right upper quadrant, colonic diverticulosis, and bilateral lower lobe pneumonia. Chest Xray reveals right lung base pneumonia and cardiomegaly. The pt was started on oral Augmentin and azithromycin. She aspirated after and required 3L of oxygen. The ED physician consulted the hospitalist team for further medical management. I admitted the pt to the medical surgical floor. She arrives on 2L and will continue to wean her oxygen. Will monitor overnight for any acute bleeding and continue her oral antibiotics. [facility] Disclaimer: The information contained in this section may have been updated after the patient was seen, as this information can be updated by other users. 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 Edema of left lower leg Elevated troponin Lower extremity edema Memory impairment Pneumonia Popliteal cyst, unruptured Pulmonary hypertension Serrated adenoma of colon Shortness of Breath Skin tear Tubular adenoma of colon Surgical History H/O: hysterectomy History of cholecystectomy History of colonoscopy Hx of hernia repair Family History Other No significant family history Social History (Updated 05/30/23 @ 23:36 by April Barnes RN) Smoking Status: Never smoker alcohol intake: never substance use type: denies use current occupational status: retired Travel in the last 8 weeks: None Meds Home Medications and Allergies Home Medications Medication Instructions Recorded Confirmed Type apixaban 5 mg tablet (Eliquis) 5 mg PO BID Atrial fib 05/17/22 05/31/23 History atenolol 50 mg tablet 50 mg PO DAILY heart rate 05/17/22 05/31/23 History gabapentin 100 mg capsule 100 mg PO BID neuropathy 05/17/22 05/31/23 History pantoprazole 40 mg tablet,delayed 40 mg PO BID acid reflux 05/17/22 05/31/23 History release atorvastatin 20 mg tablet 20 mg PO HS Cholesterol 07/12/22 05/31/23 History clopidogrel 75 mg tablet 75 mg PO DAILY Blood thinner 07/12/22 05/31/23 History furosemide 40 mg tablet 20 mg PO DAILY Fluid 07/12/22 05/30/23 History oxycodone 5 mg tablet 5 mg PO HS Pain 08/28/22 05/31/23 History tramadol 50 mg tablet 100 mg PO BID PRN Pain 08/28/22 05/31/23 History quetiapine 25 mg tablet 25 mg PO HS Insomnia/agitation 02/01/23 05/31/23 History clind
--- NOTE | 2023-05-31 12:38 | EXP.PN ---
Subjective *Date: 05/31/23 *Time: 12:43 Exam Data for Last 24 hours Vital signs and Labs for Last 24 Hours: Temp Pulse Resp BP Pulse Ox O2 Del Method O2 Flow Rate 97.9 F 68 16 112/50 L 97 Nasal Cannula 2 05/31/23 08:00 05/31/23 08:00 05/31/23 08:00 05/31/23 08:00 05/31/23 08:00 05/31/23 11:00 05/31/23 11:00 Laboratory Results - last 24 hr 05/30/23 18:30: WBC 11.4 H, RBC 3.40 L, Hgb 10.2 L, Hct 31.7 L, MCV 93.3, MCH 29.9, MCHC 32.1, RDW 16.0, Plt Count 291, MPV 8.2, Neut % (Auto) 85.4 H, Lymph % (Auto) 9.0 L, [place] % (Auto) 4.8, Eos % (Auto) 0.6, Baso % (Auto) 0.2, Neut # (Auto) 9.8 H, Lymph # (Auto) 1.0, [place] # (Auto) 0.5, Eos # (Auto) 0.1, Baso # (Auto) 0.0, Total Counted 100, Neutrophils % (Manual) 88 H, Band Neutrophils % 1.0, Lymphocytes % (Manual) 9 L, Monocytes % (Manual) 2, Platelet Estimate Normal, Hypochromasia 1+, PT 15.3 H, INR 1.45 H, APTT 31.6 H, Sodium 138, Potassium 3.9, Chloride 97 L, Carbon Dioxide 37 H, Anion Gap 7.9, BUN 12, Creatinine 0.70, Estimated Creat Clear 37, Estimated GFR 80, Est GFR ( Amer) 96, Glucose 133 H, Calcium 7.9 L, Total Bilirubin 0.7, AST 41 H, ALT 21, Alkaline Phosphatase 106, NT-Pro-B Natriuret Pep 3490 H, Total Protein 6.5, Albumin 3.0 L, Globulin 3.5 H, Albumin/Globulin Ratio 0.9 L 05/31/23 05:27: WBC 7.4 D, RBC 3.18 L, Hgb 9.7 L, Hct 29.6 L, MCV 92.9, MCH 30.5, MCHC 32.8, RDW 16.0, Plt Count 259, MPV 7.6, Neut % (Auto) 75.8, Lymph % (Auto) 16.2, [place] % (Auto) 6.3, Eos % (Auto) 1.4, Baso % (Auto) 0.2, Neut # (Auto) 5.6, Lymph # (Auto) 1.2, [place] # (Auto) 0.5, Eos # (Auto) 0.1, Baso # (Auto) 0.0, Sodium 135 L, Potassium 3.7, Chloride 98, Carbon Dioxide 34 H, Anion Gap 6.7, BUN 9, Creatinine 0.60, Estimated Creat Clear 42, Estimated GFR 95, Est GFR ( Amer) 115, Glucose 87 D, Calcium 7.9 L I & O for Last 24 hours: Intake & Output 05/28/23 05/29/23 05/30/23 05/31/23 23:59 23:59 23:59 23:59 Weight 57.153 kg 64.183 kg Assessment and Plan *Assessment and plan (1) Respiratory failure with hypoxia: Status: Acute Category: Medical Code(s): J96.91 - Respiratory failure, unspecified with hypoxia (2) CAP (community acquired pneumonia): Status: Acute Category: Medical Code(s): J18.9 - Pneumonia, unspecified organism (3) Rectal bleed: Status: Acute Category: Medical Code(s): K62.5 - Hemorrhage of anus and rectum (4) Pressure ulcer: Status: Acute Category: Medical Code(s): L89.90 - Pressure ulcer of unspecified site, unspecified stage (5) Dementia: Status: Acute Category: Medical Code(s): F03.90 - Unspecified dementia, unspecified severity, without behavioral disturbance, psychotic disturbance, mood disturbance, and anxiety (6) HTN (hypertension): Status: Acute Category: Medical Code(s): I10 - Essential (primary) hypertension (7) HLD (hyperlipidemia): Status: Acute Category: Medical Code(s): E78.5 - Hyperlipidemia, unspecified (8) Afib: Status: Acute Category: Medical Code(s): I48.91 - Unspecified atrial fibrillation (9) CAD (coronary artery disease): Status: Acute Category: Medical Code(s): I25.10 - Atherosclerotic heart disease of [place] coronary artery without angina pectoris (10) CHF (congestive heart failure): Status: Acute Category: Medical Code(s): I50.9 - Heart failure, unspecified Plan Patient is a 87-year-old female who presented to hospital due to complaint of bright red blood in the stool x2 yesterday. Patient has past medical history of CHF, A-fib on Eliquis, hypertension, CAD. Assessment Rectal bleed Community-acquired pneumonia, presumed gram-positive pneumonia CT abdomen with hiatal hernia, suspicious for gastric outlet obstruction Decubitus ulcers Hypertension Hyperlipidemia A-fib CAD CHF Dementia Plan No documented bloody bowel m
[2023-05-31 15:13] VITALS: BP 136/45; PULSE 60; RESP 19; TEMP 36.5; O2SAT 99
[2023-05-31 20:00] VITALS: BP 128/56; PULSE 74; RESP 16; TEMP 36.4; O2SAT 99
--- NOTE | 2023-06-01 03:36 | PC.NURSE ---
Patient very confused during shift, alert to self only. VS stable and patient remained on room air. No pain reported by patient.
[2023-06-01 04:00] VITALS: BP 141/57; PULSE 75; RESP 16; TEMP 36.6; O2SAT 99; BMI 25.5
[2023-06-01 07:45] VITALS: O2SAT 99
[2023-06-01 08:00] VITALS: BP 152/73; PULSE 80; RESP 16; TEMP 36.3; O2SAT 92
[2023-06-01 08:43] LABS: Basophils % 0.2 % (0.1-2.0); Eosinophils # 0.1 K/mm3 (0.0-0.4); Hematocrit 33.9 % (37.0-47.0); Lymphocytes # 0.8 K/mm3 (0.7-4.5); Lymphocytes % 12.7 % (10-50); Mean Corpuscular HGB Conc 32.5 g/dL (31.8-35.4); Mean Corpuscular Hemoglobin 30.3 pg (27.0-31.2); Mean Corpuscular Volume 93.4 fl (81-99); Mean Platelet Volume 8.4 fl (7.4-10.4); Monocytes # 0.4 K/mm3 (0.1-1.0); Monocytes % 6.7 % (1.7-9.3); Neutrophils % 78.2 % (37.0-80.0); Platelet Count 300 K/mm3 (142-424); Red Blood Count 3.63 M/mm3 (4.20-5.40); Red Cell Distribution Width 16.1 % (11.5-17.5); White Blood Count 6.4 K/mm3 (4.8-10.8)
[2023-06-01 08:46] LABS: Anion Gap 5.6 mEq/L (5-15); Blood Urea Nitrogen 8 mg/dl (7-17); Carbon Dioxide 37 mmol/L (22.0-30.0); Chloride 98 mmol/L (98-107); Creatinine Clearance Estimated 44 mL/min (50-200); Estimated Glomerular Filt Rate 80 ml/min (>60); GFR (African American) 96 ML/MIN (>60); Glucose 135 mg/dl (74-100); Potassium 3.6 mmoL/L (3.5-5.1); Sodium 137 mmol/L (136-145)
--- NOTE | 2023-06-01 09:33 | EXP.SURG.PN ---
Subjective Patient reports: no new complaints Exam Data for Last 24 hours Vital signs and Labs for Last 24 Hours: Temp Pulse Resp BP Pulse Ox O2 Del Method O2 Flow Rate 97.4 F L 80 16 152/73 H 92 L Room Air 1 06/01/23 08:00 06/01/23 08:00 06/01/23 08:00 06/01/23 08:00 06/01/23 08:00 06/01/23 08:00 05/31/23 15:13 Laboratory Results - last 24 hr 06/01/23 08:30: WBC 6.4, RBC 3.63 L, Hgb 11.0 L, Hct 33.9 L, MCV 93.4, MCH 30.3, MCHC 32.5, RDW 16.1, Plt Count 300, MPV 8.4, Neut % (Auto) 78.2, Lymph % (Auto) 12.7, [place] % (Auto) 6.7, Eos % (Auto) 2.0, Baso % (Auto) 0.2, Neut # (Auto) 5.0, Lymph # (Auto) 0.8, [place] # (Auto) 0.4, Eos # (Auto) 0.1, Baso # (Auto) 0.0, Sodium 137, Potassium 3.6, Chloride 98, Carbon Dioxide 37 H, Anion Gap 5.6, BUN 8, Creatinine 0.70, Estimated Creat Clear 44, Estimated GFR 80, Est GFR ( Amer) 96, Glucose 135 H, Calcium 8.0 L I & O for Last 24 hours: Intake & Output 05/29/23 05/30/23 05/31/23 06/01/23 11:59 11:59 11:59 11:59 Intake Total 360 / 360 Output Total 500 / 500 Balance -140 / -140 Weight 141 lb 8 oz 149 lb 9.6 oz Constitutional Constitutional: no acute distress *Routine Respiratory Exam Respiratory: Absent respiratory distress *Routine Abdominal Exam Abdominal: Present soft Comments: Right upper quadrant hernia containing intra-abdominal contents once again noted. The hernia was reduced; however, the level of difficulty to obtain reduction increased versus yesterday. Progress Note: A&P Assessment and plan (1) Abdominal hernia: Status: Acute Assessment and plan: Complex right upper abdominal wall hernia containing intra-abdominal contents with no definitive evidence of obstruction. Seemingly, this is a long-standing hernia with no history of incarceration. The hernia was reduced yesterday with no significant difficulty. The hernia was reduced this morning with moderate difficulty. The patient understands the risks and benefits of operative intervention. She is an exceptionally poor operative candidate secondary to her multiple comorbid conditions. Currently, the risks of operative repair outweigh the potential benefit; however, close ongoing evaluation/discussion in the outpatient setting warranted.
--- NOTE | 2023-06-01 11:05 | PC.NURSE ---
courtesy tech note: patient rounded on. assisted patient on the bedside commode with assistance from primary tech. activity tolerated well. pateint up to chair with chair alarm on. no further requests at this time. call light w/in reach.
--- NOTE | 2023-06-01 12:46 | EXP.DC.SUM ---
General Admission date:: 05/30/23 Discharge date: 06/01/23 HPI HPI HPI: This is an 87-year-old female with a complex past medical history who presented to the emergency department with recent cough, abdominal discomfort, and intermittent bright red blood per rectum. Forwarded from emergency department evaluation/history and physical: 87-year-old female presented to the ED for c/o bright red blood in her stool x 2 in since yesterday. PMHX A-fib on Eliquis, heart failure, pulmonary hypertension, coronary artery disease, diverticulosis. Per family, patient had 2 large bowel movements that were full of bright red blood. 1 last night, 1 this morning. Patient is also had some abdominal discomfort of the last few days. Family reports that the patient has had worsening cough at home and home health was concerned for possible pneumonia. Patient has significant dementia and is unable to provide any significant history, though she is awake alert and interactive and can answer simple questions. Her ED workup revealed stable hgb, elevated BNP, negative occult stool, and CTA of abd revealed hernia in the right upper quadrant, colonic diverticulosis, and bilateral lower lobe pneumonia. Chest Xray reveals right lung base pneumonia and cardiomegaly. The pt was started on oral Augmentin and azithromycin. She aspirated after and required 3L of oxygen. The ED physician consulted the hospitalist team for further medical management. I admitted the pt to the medical surgical floor. She arrives on 2L and will continue to wean her oxygen. Will monitor overnight for any acute bleeding and continue her oral antibiotics. Hospital Course Hospital Course Hospital Course: Patient was seen and evaluated at the bedside on the day of discharge. Patient is stable for discharge. Patient wishes to be discharged. All patient questions were answered and patient was given time to ask questions. Patient was discharged in stable condition. 87-year-old female presented to the ED for c/o bright red blood in her stool x 2 in since yesterday. PMHX A-fib on Eliquis, heart failure, pulmonary hypertension, coronary artery disease, diverticulosis. Per family, patient had 2 large bowel movements that were full of bright red blood. 1 last night, 1 this morning. Patient is also had some abdominal discomfort of the last few days. Family reports that the patient has had worsening cough at home and home health was concerned for possible pneumonia. Patient has significant dementia and is unable to provide any significant history, though she is awake alert and interactive and can answer simple questions. Her ED workup revealed stable hgb, elevated BNP, negative occult stool, and CTA of abd revealed hernia in the right upper quadrant, colonic diverticulosis, and bilateral lower lobe pneumonia. Chest Xray reveals right lung base pneumonia and cardiomegaly. The pt was started on oral Augmentin and azithromycin. She aspirated after and required 3L of oxygen. The ED physician consulted the hospitalist team for further medical management. I admitted the pt to the medical surgical floor. She arrives on 2L and will continue to wean her oxygen. Will monitor overnight for any acute bleeding and continue her oral antibiotics. HYPOXIA - improved DC on oral Abx RECTAL BLEED - resolved, consulted GS, no intervention recommended PRESSURE ULCER -Wound care consult for pressure ulcer on right and left hip, and right heel -Pt has home health that cares for wounds DEMENTIA HTN HLD A FIB CAD CHF FULL CODE REGULAR DIET DVT: HOLD Exam Data for Last 24 hours Vital signs and Labs for Last 24 Hours: Temp Pulse Resp BP Pulse Ox O2 Del Method O2 Flow Rate 97.4 F L 80 16 152/73 H 92 L Room Air 1 06/01/23 08:00 06/01/23 08:00 06/01/23 08:00 06/01/23 08:00 06/01/23 08:00 06/01/23 11:52 05/31/23 15:13 Laboratory Results - last 24 hr 06/01/23 08:30: WBC 6.4, RBC 3.63 L, Hgb 11.0 L,
--- NOTE | 2023-06-04 14:15 | CARE MANAGER ---
Contacted patient's family related to hospital discharge. They state she is doing well and is taking her antibiotic. They are aware of follow up appointment. Denies any questions or concerns. DAVID Lezama
== END 2023-06-01 13:20 | disposition home health service (06) ==
LOC: ER 18:21 → 2ND 22:10
PROVIDERS: Nurse Practitioner Critical Care Medicine; Admitting Provider Internal Medicine; Emergency Provider Emergency Medicine; PCP Family Medicine; Visit Provider Internal Medicine
DX: J96.01 Acute respiratory failure with hypoxia (principal); J18.9 Pneumonia, unspecified organism; K62.5 Hemorrhage of anus and rectum; L89.214 Pressure ulcer of right hip, stage 4; F03.90 Unspecified dementia, unspecified severity, without behavioral disturbance, psychotic disturbance, mood disturbance, and anxiety; I10 Essential (primary) hypertension; E78.5 Hyperlipidemia, unspecified; I48.91 Unspecified atrial fibrillation; I25.10 Atherosclerotic heart disease of native coronary artery without angina pectoris; I50.9 Heart failure, unspecified; K43.9 Ventral hernia without obstruction or gangrene; Z79.01 Long term (current) use of anticoagulants; Z79.899 Other long term (current) drug therapy; I27.20 Pulmonary hypertension, unspecified
CPT/HCPCS: 36415; 71045; 74177; 80048; 80053; 83880; 85007; 85025; 85610; 85730; 97163; 97167; 97530; 99285; G0378; Q9967